=== PATIENT | male | born 1935 | race Caucasian/White ===

== ENCOUNTER 2020-03-06 10:04 | Outpatient (CLI) | payer MEDICARE, SELFPAY ==
--- NOTE | ~2020-03-06 | US_ITS ---
EXAMINATION: US aorta DATE: 03/06/2020 10:53 INDICATION: Abdominal aortic aneurysm monitoring. TECHNIQUE: Grayscale, color Doppler, and pulsed Doppler images of the aorta and common iliac arteries were obtained. COMPARISON: None. FINDINGS: The proximal aorta measures 2.4 cm. The mid aorta measures 1.9 cm. The distal aorta measures 1.7 cm. The right common iliac artery measures 1.1 cm. The left common iliac artery measures 1.1 cm. IMPRESSION: 1. Normal caliber abdominal aorta. Reviewed, dictated and finalized at location B.
--- NOTE | ~2020-03-06 | XR_ITS ---
EXAMINATION: XR elbow RT 2V DATE: 03/06/2020 10:50 INDICATION: Lateral right elbow pain post injury 3 weeks prior TECHNIQUE: Anteroposterior and lateral views of the right elbow were obtained. COMPARISON: None. FINDINGS: Alignment is normal. No fracture or joint effusion. Joint spaces are normal. Small amount of heteroto pic ossification at the lateral epicondyle likely sequela of chronic injury. Soft tissues are otherwi se unremarkable. IMPRESSION: 1. No right elbow joint effusion or acute osseous abnormality. Reviewed, dictated and finalized at location B.
--- NOTE | ~2020-03-06 | US_ITS ---
EXAMINATION: US venous doppler [facility] DATE: 03/06/2020 10:53 INDICATION: Left lower limb swelling TECHNIQUE: Grayscale ultrasound images without and with compression and Doppler ultrasound images of the left lower extremity veins were obtained. COMPARISON: None. FINDINGS: The visualized portions of left common femoral vein, profunda (deep) femoral vein, femoral vein, popl iteal vein, peroneal veins, posterior tibial veins, gastrocnemius vein and greater saphenous vein out flow are patent. IMPRESSION: 1. No deep venous thrombosis in the left lower limb. Reviewed, dictated and finalized at location B.
== END 2020-03-06 10:05 | disposition home or self-care (01) ==
LOC: ANHIMG 10:06
PROVIDERS: PCP Family Medicine; Visit Provider Internal Medicine Medical Oncology
DX: M25.521 Pain in right elbow (principal); R60.0 Localized edema
CPT/HCPCS: 73070; 76775; 93971

== ENCOUNTER 2020-07-07 10:48 | Outpatient (CLI) | payer MEDICARE, SELFPAY ==
--- NOTE | ~2020-07-07 | XR_ITS ---
XR hip RT min 2V DATE: 07/07/2020 11:25 INDICATION: Right hip pain TECHNIQUE: AP and lateral views COMPARISON: None FINDINGS: No fracture or dislocation or bone destruction. There is no evidence of avascular necrosis. Right hip joint space appears relatively preserved. The pubic symphysis and right sacral iliac joint are intact. Prominent degenerative disc disease at L4-5 and L5-S1. IMPRESSION: No significant abnormality of the right hip Prominent degenerative disc disease at L4-5 and L5-S1 Reviewed, dictated and finalized at location B. CTOR OF EDUCATION
--- NOTE | ~2020-07-07 | XR_ITS ---
XR knee RT min 4V DATE: 07/07/2020 11:25 INDICATION: Right knee pain TECHNIQUE: 4 views COMPARISON: None FINDINGS: There is mild periarticular spurring at the patellofemoral joint and medial compartment. Th ere is moderately severe loss of height of medial compartment joint space. There is chondrocalcinosis. No fracture or dislocation or joint effusion. No periosteal reaction or bone destruction. There is soft tissue swelling at the anterior aspect of the proximal tibia with multiple ununited oss ification centers at the anterior tibial tuberosity. 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 DRESSER IMPRESSION: Osteoarthritis involving primarily the medial and patellofemoral co mpartments Chondrocalcinosis Anterior soft tissue swelling and multiple ununited ossification centers at the tibial tuberosity
--- NOTE | ~2020-07-07 | XR_ITS ---
XR lumbar spine 2-3V DATE: 07/07/2020 11:25 INDICATION: Low back pain, right hip and knee pain TECHNIQUE: AP, lateral, coned lateral lumbosacral views COMPARISON: None FINDINGS: Diffuse osteopenia. Mild levoscoliosis of the thoracolumbar spine. No fracture or bone destruction or spondylolisthesis. The lumbar pedicles are intact. There is moderate degenerative disease at L1-2, L2-3, mild degenerative disc disease at L3-4 and shahana re degenerative disc disease at L4-5 and L5-S1. Abdominal aortic and iliac arterial calcifications, without evidence of aneurysm. The sacroiliac joints are intact. IMPRESSION: Multilevel degenerative disc disease Mild levoscoliosis Osteopenia Reviewed, dictated and finalized at location B. NOLOGY EDUCATION TEACHER
== END 2020-07-07 10:49 | disposition home or self-care (01) ==
PROVIDERS: PCP Family Medicine; Visit Provider Family Medicine
DX: M17.11 Unilateral primary osteoarthritis, right knee (principal); M51.36 Other intervertebral disc degeneration, lumbar region; M51.37 Other intervertebral disc degeneration, lumbosacral region; M85.88 Other specified disorders of bone density and structure, other site
CPT/HCPCS: 72100; 73502; 73564

== ENCOUNTER 2021-04-06 07:24 | Outpatient (CLI) | payer MEDICARE, SELFPAY ==
--- NOTE | ~2021-04-06 | MR_ITS ---
EXAMINATION: MR brain/brain stem wo/w con DATE: 04/06/2021 08:29 INDICATION: Other amnesia. TECHNIQUE: Magnetic resonance imaging (MRI) of the brain and brainstem was performed without and with 14 mL MultiHance intravenous contrast. Sequences included sagittal and axial T1-weighted FSE, axial diffusion-weighted FS EPI, axial T2*-weighted GRE, axial T2-weighted FLAIR Propeller, and axial T2-we ighted Propeller. Postcontrast sequences included axial and coronal T1-weighted FSE. Apparent diffusi on coefficient (ADC) maps were created. COMPARISON: Brain MRI 03/13/2010 FINDINGS: There are scattered areas of nonspecific increased T2-weighted signal intensity in the cere bral white matter. There is no intracranial hemorrhage, acute infarction, or abnormal intracranial ma ss lesion. The ventricles are normal in size. There is a small left mastoid effusion. There are likel y changes of ocular lens replacement surgeries. There is a mucous retention cyst in right maxillary s inus. IMPRESSION: 1. Mild nonspecific cerebral white matter disease, which likely represents chronic small vessel ische deana disease, worsened from 03/13/2010. Reviewed, dictated and finalized at location A. IMPRESSION: 1. 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
[2021-04-06 08:02] LABS: Estimated Glomerular Filt Rate 52
== END 2021-04-06 07:25 | disposition home or self-care (01) ==
PROVIDERS: PCP Family Medicine; Visit Provider Family Medicine
DX: R41.3 Other amnesia (principal); I48.0 Paroxysmal atrial fibrillation; R93.0 Abnormal findings on diagnostic imaging of skull and head, not elsewhere classified
CPT/HCPCS: 70553; A9577

== ENCOUNTER 2021-04-20 01:09 | Day surgery (SDC) | payer MEDICARE, SELFPAY ==
[2021-04-20 09:15] VITALS: BP 174/78; PULSE 64; RESP 15; TEMP 36.3; O2SAT 98; BMI 25.8
[2021-04-20 09:26] LABS: Basophils Absolute Auto 0.1 K/mm3 (0.0-0.1); Basophils Percent Auto 1.1 % (0.2-1.2); Eosinophils Absolute Auto 0.1 K/mm3 (0-0.3); Eosinophils Percent Auto 2.8 % (0-4.4); Hematocrit 36.6 % (42.0-52.0); Hemoglobin 11.9 g/dL (14.0-18.0); Immature Granulocyte Absolute 0.03 K/mm3 (0.00-0.031); Immature Granulocyte Percent A 0.7 % (0-0.5); Lymphocytes Absolute Auto 1.16 K/mm3 (0.9-3.2); Lymphocytes Percent Auto 25.2 % (18.3-44.2); Mean Corpuscular HGB Conc 32.5 g/dl (32-36); Mean Corpuscular Hemoglobin 32.3 pg (26-34); Mean Corpuscular Volume 99.5 fl (80-100); Mean Platelet Volume 8.9 fl (7.4-10.4); Monocytes Absolute Auto 0.8 K/mm3 (0.1-0.6); Monocytes Percent Auto 16.5 % (2.6-8.5); Neutrophils Absolute Auto 2.5 K/mm3 (1.3-6.7); Neutrophils Percent Auto 53.7 % (45.5-73.1); Platelet Count Result 277 k/mm3 (150-375); Red Blood Count 3.68 M/mm3 (4.6-6.20); White Blood Count 4.6 K/mm3 (4.5-10.0)
[2021-04-20 09:39] LABS: Anion Gap 5 mmol/L (8-16); Blood Urea Nitrogen 22 mg/dL (9-20); Calcium 9.5 mg/dL (8.4-10.2); Carbon Dioxide 28 mmol/L (22-30); Chloride 102 mmol/L (98-107); Estimated CRCL calculation 38 ml/min; Estimated Glomerular Filt Rate 57; Glucose 107 mg/dL (65-110); Potassium 4.9 mmol/L (3.4-5.0); Sodium 135 mmol/L (137-145)
[2021-04-20 10:02] LABS: Prothrombin Time 12.9 Seconds (11.1-14.7)
--- NOTE | 2021-04-20 10:59 | P.PCNCC_ITS ---
Cardiac Cath Procedure Note Date of procedure:: 04/20/21 Performing physician:: Baldemar Khan MD Indication:: History of syncope, loop recorder at end of life Brief clinical history:: this is an 85-year-old man who follows in our office with a history of syncope. He has a implantable loop recorder that was placed in 2018 for evaluation of this which has been depleted and battery power. The decision has been made to explant the device and implanted a new loop recorder in this setting. Procedure Procedure performed:: Explantation of depleted Medtronic LINQ loop recorder implantation of Biotronik Biomonitor 3 loop recorder Sedation/Medication given:: no sedation Access site:: left anterior chest wall at site of chronically implanted device Estimated blood loss:: minimal Procedure note:: patient was brought to the cardiac catheterization lab left anterior chest wall over the site of the chronically implanted loop recorder was prepped and draped in a sterile fashion. 1% lidocaine was infiltrated at the site of the implanted device. An incision was then made about 1 cm long above the implanted loop recorder. The electrocautery was used to provide cutaneous hemostasis. Sharp and blunt dissection was used to identify the chronically implanted device the fibrous capsule was incised and the device was removed using the forceps. Following this a new Biotronik loop recorder was implanted using the implantation device. The device was interrogated using the analyzer with very good amplitude and signal. Though incision was then closed with a 3-0 Vicryl incision for the subcutaneous tissue and several running 4-0 Vicryl sutures for the subcuticular closure. An Aquacel dressing was placed over the device. The procedure was uncomplicated and uneventful. Findings:: As above Conclusion:: 1. successful uncomplicated explantation of depleted Medtronic LINQ loop recorder 2. successful uncomplicated implantation of new Biotronik loop recorder in the same site as detailed above. Baldemar Khan MD [facility]
[2021-04-20 11:15] VITALS: BP 204/75; PULSE 64; RESP 18; O2SAT 99
--- NOTE | 2021-04-20 11:15 | SUR.PHASEII ---
MD Khan aware of patient's BP, states it is normal for patient. No new orders given at this time.
[2021-04-20 11:30] VITALS: BP 196/78; PULSE 58; RESP 17; O2SAT 99
--- NOTE | 2022-02-17 09:22 | PC.NURSE ---
Pre Radiology instructions Report to the Outpatient Waiting Room, entrance under the green pavilion located off [facility], at time ___30____ on date __02/24/22 . Procedure Time: ___1030 . One visitor will be allowed to accompany the patient into the hospital. The visitor will be instructed to remain with patient at all times or leave the building due to restrictions. We will allow the visitor to come back to the postoperative area when patient is ready. NO children visitors allowed at this time. You and your visitor will be asked to self-screen and do not enter if you have any COVID symptoms. A mask is required within the hospital. Patients are to have no food or drink 6 hours prior to procedure time (0430 AM) Driving will be restricted after the procedure, you must have a person to drive you home. Labs will be drawn in preop area and once reviewed, you will be taken to radiology area for procedure. When the procedure is completed, you will be taken to outpatient where you will be monitored for several hours. You may have one visitor in this area. Other than holding anti-coagulants, patient may take other medication(s) as scheduled. Prior to your appointment date patients are instructed to hold anti-coagulants after discussing with ordering provider to stop. If unable to discontinue anti-coagulants please notify radiologist. No aspirin or warfarin (Coumadin) for 7 days prior to the procedure. No clopidogrel (Plavix), ticagrelor (Brilinta), prasugrel (Effient) or dabigatran (Pradaxa) for 5 days prior to the procedure. No rivaroxaban (Xarelto), apixaban (Eliquis), dipyridamole (Aggrenox or Persantine) or cilostazol (Pletal) for 2 days prior to the procedure. Medications to discontinue per physician: __ASPIRIN__ Date to take last dose: __02/17/22 Please leave all valuables, including medications, at home the day of procedure. The hospital will not accept responsibility for valuables. Wear comfortable, loose fitting clothing. Follow any additional instructions given to you from ordering provider. Telephone instructions given to PT and asked if any additional questions and then verbalized understanding. Patient advised to call scheduling provider office or registration scheduling [phone] if any additional questions.
== END 2021-04-20 13:40 | disposition home or self-care (01) ==
PROVIDERS: PCP Family Medicine; Visit Provider Specialist
PROC: (CPT 33286; principal; 2021-04-20 10:00)
PROC: (CPT 33285; 2021-04-20 10:00)
DX: Z45.09 Encounter for adjustment and management of other cardiac device (principal); R55 Syncope and collapse; I10 Essential (primary) hypertension; I71.4 Abdominal aortic aneurysm, without rupture; I48.0 Paroxysmal atrial fibrillation; Z79.82 Long term (current) use of aspirin
CPT/HCPCS: 33285; 33286; 36415; 80048; 85025; 85610; C1764; J0690; J7040

== ENCOUNTER 2021-08-13 12:37 | Emergency (ER) | payer MEDICARE, SELFPAY ==
[2021-08-13 12:50] VITALS: BP 175/89; PULSE 85; RESP 18; TEMP 36.4; O2SAT 100
[2021-08-13 13:01] LABS: Glucose Point of Care 151 mg/dl (65-105)
--- NOTE | 2021-08-13 13:01 | ED.GENADULT ---
HPI - General Adult General Chief complaint: Weakness Stated complaint: weakness Time Seen by Provider: 08/13/21 12:50 Source: patient, RN notes reviewed and old records reviewed Mode of arrival: ambulatory Limitations: no limitations History of Present Illness HPI narrative: 86-year-old male presents to the [facility] stating something is wrong with me. Reports generalized weakness and an unsteady gait since may be this morning or last night (can not tell the last time he felt normal). Patient states I feel very off. I was going to go see Dr Dover but you can do more here then she can. Reports a headache this morning with some blurry vision but none currently. States that I didn't just feel out of it and cannot think clearly. denies chest pain or shortness of breath. Denies abdominal pain. While walking patient is drifting to the left. Reports not taking his sotalol today Related Data Home Medications Medication Instructions Recorded Confirmed amlodipine 2.5 mg-benazepril 10 mg 1 cap PO DAILY 05/21/19 08/07/21 capsule sotalol 80 mg tablet 80 mg PO DAILY 05/21/19 08/07/21 aspirin 81 mg tablet,delayed 162 mg PO DAILY tablet 05/07/20 08/07/21 release Allergies Allergy/AdvReac Type Severity Reaction Status Date / Time No Known Allergies Allergy Unknown Verified 08/07/21 12:12 Review of Systems Review of Systems: All systems reviewed & are unremarkable except as noted in HPI and below Constitutional: Constitutional: Reports as per HPI, Reports fatigue and Reports weakness Eyes: Eyes: Reports no additional eye complaints ENT: Reports system reviewed and no additional complaints, except as documented Cardiovascular: Cardiovascular: Reports no additional cardiovascular complaints, Denies chest pain, Denies rapid heart rate, Denies radiating jaw, neck or arm pain and Denies slow heart rate Respiratory: Respiratory: Reports no additional respiratory complaints, Denies cough and Denies dyspnea Gastrointestinal: Gastrointestinal: Reports no additional gastrointestinal complaints, Denies abdominal pain, Denies nausea and Denies vomiting Genitourinary: Genitourinary: Reports no additional male genitourinary complaints Musculoskeletal: Musculoskeletal: Reports as per HPI and Reports myalgias Neurologic: Reports as per HPI, Reports confusion, Denies dizziness, Denies numbness and Reports weakness Psychiatric: Psychiatric: Reports no additional psychiatric complaints Allergic/Immunologic: Allergic/Immunologic: Reports no additional allergic/immunologic complaints PMFSH Past Medical History Medical History A-fib Anemia Arthritis Encounter for immunization Erectile dysfunction 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 Hypertension Insomnia Iron deficiency anemia Macular degeneration Memory loss Obsessive compulsive disorder Rectal bleeding Surgical History Surgical History H/O hernia repair Family History Family History Mother Diabetes mellitus Family history of glaucoma Hypertension Family history of cardiovascular disease Cerebrovascular accident Father Hypertension Malignant neoplasm of prostate Sibling Family history of cardiovascular disease Social History Social History Smoking packs per day: 2 Smoking cigarettes per day: 40.0 Years smoked: 20 Smoking pack-years: 40.00 Smoking status: Former smoker Second hand tobacco smoke exposure: Yes Smoking end date: 07/04/72 Alcohol intake: current Drinks per week: 21 Alcohol use details: WINE Substance use: never Substance use type: does not use Gender identity (if verbalized by the patient): Male Comments At the time of my signature, I reviewed and agree with the nursing past medical, surgical, social, an
--- NOTE | 2021-08-13 13:05 | ECG_ITS ---
Measurements Intervals [place] Rate: 72 P: 50 AK: 185 QRS: 60 QRSD: 150 T: 46 QT: 382 QTc: 420 Interpretive Statements SINUS RHYTHM RIGHT BUNDLE BRANCH BLOCK BASELINE ARTIFACT- I, II, III, AVR, AVL, AVF, V2 ABNORMAL ECG Electronically Signed On 08-13-2021 13:17:00 VOLTMETER OPERATOR by Angel Pace D.O.
== END 2021-08-13 13:20 | disposition short-term general hospital (02) ==
PROVIDERS: Emergency Provider Nurse Practitioner; PCP Family Medicine
DX: R53.1 Weakness (principal); R26.81 Unsteadiness on feet; I45.10 Unspecified right bundle-branch block; Z87.891 Personal history of nicotine dependence; I48.91 Unspecified atrial fibrillation; M19.90 Unspecified osteoarthritis, unspecified site; R01.1 Cardiac murmur, unspecified; I10 Essential (primary) hypertension; H35.30 Unspecified macular degeneration; D50.9 Iron deficiency anemia, unspecified; Z79.82 Long term (current) use of aspirin
CPT/HCPCS: 82948; 93005; 99215; G0463

== ENCOUNTER 2021-08-13 13:49 | Inpatient (IN) | payer MEDICARE, SELFPAY ==
[2021-08-13] VITALS (12 sets, daily range): BP systolic 150–246; BP diastolic 77–106; PULSE 67–104; RESP 15–18; TEMP 36.4–37.2; O2SAT 97–100; BMI 23.3
--- NOTE | ~2021-08-13 | XR_ITS ---
XR chest 2V DATE: 08/13/2021 14:23 INDICATION: Weakness TECHNIQUE: PA and lateral views COMPARISON: 05/06/2014 2 view chest FINDINGS: There is an electronic monitoring device in the left anterior chest wall. Normal heart size . There is thoracic aortic calcification. No hilar or mediastinal enlargement is evident. No pulmonary infiltrate or consolidation, pleural effusion or pulmonary vascular congestion or pneumo thorax is detected. Degenerative spurring of the thoracic spine. Osteopenia. Bilateral chronic rotator cuff atrophy is flanagan ggested. IMPRESSION: No active cardiopulmonary disease Reviewed, dictated and finalized at location A. DENCE LEASING AGENT
--- NOTE | ~2021-08-13 | US_ITS ---
EXAMINATION: US venous doppler [facility] EXAM DATE: 08/13/2021 16:37 INDICATION: Left leg cramping. TECHNIQUE: Multiple grayscale, color flow and Doppler images of the left lower extremity deep venous system were obtained and reviewed. Comparison is made to prior examination from 03/06/2020. FINDINGS: The left common femoral, femoral and profunda veins demonstrate normal color flow, respirat ory variation, augmentation and compressibility. Compressibility, color flow confirmed within the le ft popliteal, posterior tibial, peroneal, and greater saphenous veins. IMPRESSION: 1. No left lower extremity deep venous thrombosis. Reviewed, dictated and finalized at location B. SCIENCES DIRECTOR
--- NOTE | 2021-08-13 13:48 | ECG_ITS ---
Measurements Intervals [place] Rate: 89 P: 69 AK: 211 QRS: 62 QRSD: 146 T: 20 QT: 353 QTc: 432 Interpretive Statements SINUS RHYTHM WITH FIRST DEGREE AV BLOCK POSSIBLE LEFT ATRIAL ENLARGEMENT RIGHT BUNDLE BRANCH BLOCK BASELINE ARTIFACT- I, II, III, AVR, AVF, V1-V6 ABNORMAL ECG Electronically Signed On 08-13-2021 13:52:53 NUCLEAR OPERATOR by Angel Pace D.O.
[2021-08-13 14:00] LABS: Basophils Percent Auto 0.4 % (0.2-1.2); Eosinophils Percent Auto 0.2 % (0-4.4); Hematocrit 36.8 % (42.0-52.0); Hemoglobin 12.4 g/dL (14.0-18.0); Immature Granulocyte Absolute 0.14 K/mm3 (0.00-0.031); Immature Granulocyte Percent A 1.7 % (0-0.5); Lymphocytes Absolute Auto 1.11 K/mm3 (0.9-3.2); Lymphocytes Percent Auto 13.2 % (18.3-44.2); Mean Corpuscular HGB Conc 33.7 g/dl (32-36); Mean Corpuscular Volume 94.8 fl (80-100); Mean Platelet Volume 8.9 fl (7.4-10.4); Monocytes Absolute Auto 0.8 K/mm3 (0.1-0.6); Monocytes Percent Auto 9.8 % (2.6-8.5); Neutrophils Absolute Auto 6.3 K/mm3 (1.3-6.7); Neutrophils Percent Auto 74.7 % (45.5-73.1); Platelet Count Result 347 k/mm3 (150-375); Red Blood Count 3.88 M/mm3 (4.6-6.20); Red Cell Distribution Width 13.2 % (11.5-14.5); White Blood Count 8.4 K/mm3 (4.5-10.0)
[2021-08-13 14:19] LABS: Alanine Aminotransferase 16 U/L (4-50); Albumin Level 4.9 g/dL (3.5-5.1); Alkaline Phosphatase 59 U/L (38-126); Anion Gap 10 mmol/L (8-16); Aspartate Amino Transferase 34 U/L (17-59); Bilirubin,Total 0.6 mg/dL (0.2-1.3); Blood Urea Nitrogen 26 mg/dL (9-20); Calcium 9.6 mg/dL (8.4-10.2); Carbon Dioxide 21 mmol/L (22-30); Chloride 91 mmol/L (98-107); Estimated CRCL calculation 40 ml/min; Estimated Glomerular Filt Rate 57; Glucose 121 mg/dL (65-110); Potassium 5.3 mmol/L (3.4-5.0); Sodium 122 mmol/L (137-145)
[2021-08-13 14:39] LABS: Add Urine Microscopic? YES; Appearance Urine Clear (Clear); Bilirubin Urine Negative (Negative); Blood Urine Negative (Negative); Color Urine Yellow (Yellow); Glucose Urine UA Negative (Negative); Ketones Urine Trace mg/dL (Negative); Leukocyte Esterase Ur Negative LEU/UL (Negative); Mucus Urine Rare /lpf; Nitrate Urine Negative (Negative); Protein Urine Negative (Negative); RBC Urine 0-2 /hpf (0-2); Specific Grav Ur 1.011 (1.001-1.035); Urobilinogen Urine Negative mg/dL (<2.0); WBC Urine 0-3 /hpf
[2021-08-13] MEDS: hydrALAZINE HCL 20 MG/ML VIAL 10 MG IV PUSH (15:21)
[2021-08-13] MEDS: ONDANSETRON INJ 4 MG/2 ML VIAL IV PUSH (15:40)
[2021-08-13] MEDS: SODIUM CHLORIDE 0.9% IV 1,000 ML 999 ML IV CONT (15:40)
--- NOTE | 2021-08-13 15:59 | ED.WEAKNESS ---
HPI - Weakness General Chief complaint: Weakness Stated complaint: dizzy Time Seen by Provider: 08/13/21 14:04 History of Present Illness HPI Narrative: Patient is an 86-year-old male who presents to the ER with generalized fatigue and dizziness. Began this morning upon waking up. Reports he has been taking his home medications for hypertension. Patient found to be markedly hypertensive upon arrival here 246/106 mmHg. He was seen at an urgent care with similar symptoms but his blood pressure was lower. Reports mild frontal headache that is resolved. Reports significant amounts of stress recently due to the fact that he is currently going through divorce with his of 50 years. Patient also reporting left leg muscle cramps in the calf. Related Data Home Medications Medication Instructions Recorded Confirmed amlodipine 2.5 mg-benazepril 10 mg 1 cap PO DAILY 05/21/19 08/13/21 capsule sotalol 80 mg tablet 80 mg PO DAILY 05/21/19 08/13/21 aspirin 81 mg tablet,delayed 162 mg PO DAILY tablet 05/07/20 08/13/21 release Allergies Allergy/AdvReac Type Severity Reaction Status Date / Time No Known Allergies Allergy Unknown Verified 08/07/21 12:12 Review of Systems Review of Systems: All systems reviewed & are unremarkable except as noted in HPI and below Constitutional: Constitutional: Denies chills, Denies fever(s) and Reports weakness Eyes: Eyes: Denies photophobia Comments: Transient blurred vision ENT: Denies nasal congestion and Denies sore throat Cardiovascular: Cardiovascular: Denies chest pain, Denies rapid heart rate and Denies radiating jaw, neck or arm pain Respiratory: Respiratory: Denies cough and Denies dyspnea Musculoskeletal: Musculoskeletal: Reports muscle cramps Neurologic: Reports dizziness, Denies syncope, Reports headache(s), Denies focal weakness and Denies numbness PMFSH Past Medical History Medical History A-fib Anemia Arthritis Encounter for immunization Erectile dysfunction 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 Hypertension Insomnia Iron deficiency anemia Macular degeneration Memory loss Obsessive compulsive disorder Rectal bleeding Surgical History Surgical History H/O hernia repair Family History Family History Mother Diabetes mellitus Family history of glaucoma Hypertension Family history of cardiovascular disease Cerebrovascular accident Father Hypertension Malignant neoplasm of prostate Sibling Family history of cardiovascular disease Social History Social History Smoking packs per day: 2 Smoking cigarettes per day: 40.0 Years smoked: 20 Smoking pack-years: 40.00 Smoking status: Former smoker Second hand tobacco smoke exposure: Yes Smoking end date: 07/04/72 Alcohol intake: current Drinks per week: 21 Alcohol use details: WINE Substance use: never Substance use type: does not use Gender identity (if verbalized by the patient): Male Exam Narrative: GENERAL: Well-appearing, well-nourished, and in no acute distress. HEAD: Normocephalic, atraumatic. EYES: PERRL and EOMI. ENT: Mucous membranes moist. CHEST: Clear to auscultation. No respiratory distress. HEART: Regular rate and rhythm. Normal peripheral pulses. ABDOMEN: Soft, nontender, nondistended. EXTREMITIES: Normal range of motion. No edema. No calf pain. SKIN: Warm, dry, no rash. NEURO: No focal deficits. Patient stumbled while trying to use bathroom. Alert and oriented x3. PSYCH: Normal mood and affect. Course Course Emergency Course: Admit for observation and hydration as well as blood pressure control. Vital Signs Vital signs: Vital Signs Temperature 97.6 F 08/13/21 13:49 Pulse Rate 96 08/13/21 13:49 Respiratory Rate 18 08/13/21 13:49 Bl
[2021-08-13 16:38] LABS: SARS-CoV-2 RNA PCR Negative
[2021-08-13] MEDS: ACETAMINOPHEN 325 MG TABLET 650 MG PO (18:10)
[2021-08-13] MEDS: LORazepam INJ (*CRX) 2 MG/ML VIAL 0.5 MG IV PUSH (21:37)
--- NOTE | 2021-08-13 22:00 | ADMIMU ---
This patient, Trenton Aguilar, was admitted to IMU status, and placed in IMU Room 231-01. Patient/family oriented to hospital policies and general routines including ID bracelet, bed and alarms, visiting hours, pain management, procedures, bathroom and other care routines, personal items, smoking policy, room service/diet, and visiting hours. Valuables list has been completed. Information on how to activate the Rapid Response Team has been discussed. Patient/Family are encouraged to report perceived risks to care and to ask questions if they do not understand what they are told or what they should do.
--- NOTE | 2021-08-13 22:19 | PM.IMHP ---
H&P: HPI History of Present Illness Date/Time: 08/13/211999 this is an 86-year-old male patient who came to the emergency room with some generalized fatigue and dizziness. The patient tells me that he has had multiple stressful events. the patient has not taken any of his medications today. The patient's blood pressure is highly elevated today. The patient's blood pressure was 246/106 mmHg upon arrival to the emergency room. The patient had a mild frontal headache which is now resolved. The patient is going through divorce after 50 years of marriage. He is also in the process of selling his home and buying a new 1. The patient tells me that he drinks 4-5 glasses of wine a day. He tells me that he is feeling very anxious and shaky at this time. He does have a history of atrial fibrillation but is not on any anticoagulation other than aspirin. His H&H is 12.4 and 36.8 which is higher than his baseline. However the patient does appear to be dehydrated. His sodium is 122. Potassium is 5.3. Chloride is 91. He denies any fever chills. No nausea vomiting Or diarrhea. the patient also complained of some left leg cramping and an ultrasound was performed of the left leg which was read as no left lower extremity deep vein thrombosis. Chest x-ray was read as no acute cardiopulmonary disease. The patient was given IV fluids due to the low sodium. He was given Zofran and hydralazine in the emergency room. The patient was also complaining of having left neck muscle spasms. The patient is being admitted to observation status on the date of service 08/13/2021. Chief Complaint: Weakness Review of Systems Review of Systems: All systems reviewed & are unremarkable except as noted in HPI and below Constitutional: Constitutional: Reports as per HPI and Reports no additional constitutional complaints Eyes: Eyes: Reports as per HPI and Reports no additional eye complaints ENT: Reports system reviewed and no additional complaints, except as documented and Reports Normal hearing present Cardiovascular: Cardiovascular: Reports no additional cardiovascular complaints Respiratory: Respiratory: Reports no additional respiratory complaints and Reports no additional respiratory complaints Gastrointestinal: Gastrointestinal: Reports as per HPI and Reports no additional gastrointestinal complaints Musculoskeletal: Musculoskeletal: Reports no additional musculoskeletal complaints Integumentary/Breasts: Skin/Breast: Reports system reviewed and no additional complaints, except as docu and Reports as per HPI Neurologic: Reports system reviewed and no additional complaints, except as documented, Reports as per HPI and Reports Normal hearing present Psychiatric: Psychiatric: Reports no additional psychiatric complaints and Reports as per HPI Endocrine: Endocrine: Reports no additional endocrine complaints Hematologic/Lymphatic: Hematologic/Lymphatic: Reports no additional hematologic/lymphatic complaints Allergic/Immunologic: Allergic/Immunologic: Reports no additional allergic/immunologic complaints PMFSH Past Medical History Medical History A-fib Anemia Arthritis Encounter for immunization Erectile dysfunction 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
[2021-08-13] MEDS: LIDOCAINE 5% PATCH 1 PATCH TRANSDERM (23:36)
[2021-08-13] MEDS: DOXAZOSIN MESYLATE 1 MG TABLET PO (23:40)
[2021-08-13] MEDS: PANTOPRAZOLE 40 MG TABLET PO (23:40)
[2021-08-13] MEDS: SODIUM CHLORIDE 0.9% IV 1,000 ML 125 ML IV CONT (23:41)
[2021-08-14] VITALS (10 sets, daily range): BP systolic 150–169; BP diastolic 60–78; PULSE 64–88; RESP 15–18; TEMP 36.3–36.7; O2SAT 97–99
[2021-08-14 00:01] LABS: Anion Gap 9 mmol/L (8-16); Blood Urea Nitrogen 26 mg/dL (9-20); Calcium 8.6 mg/dL (8.4-10.2); Carbon Dioxide 22 mmol/L (22-30); Chloride 90 mmol/L (98-107); Estimated CRCL calculation 36 ml/min; Estimated Glomerular Filt Rate 52; Glucose 124 mg/dL (65-110); Potassium 5.1 mmol/L (3.4-5.0); Sodium 121 mmol/L (137-145)
[2021-08-14 02:59] LABS: Sodium Urine Random 72 meq/L
[2021-08-14] MEDS: ACETAMINOPHEN 325 MG TABLET 650 MG PO (06:36)
[2021-08-14 07:43] LABS: Alanine Aminotransferase 11 U/L (4-50); Albumin Level 3.6 g/dL (3.5-5.1); Alkaline Phosphatase 39 U/L (38-126); Anion Gap 9 mmol/L (8-16); Aspartate Amino Transferase 22 U/L (17-59); Bilirubin,Total 0.9 mg/dL (0.2-1.3); Blood Urea Nitrogen 22 mg/dL (9-20); CRP < 0.5 mg/dL (<1.0); Calcium 8.5 mg/dL (8.4-10.2); Carbon Dioxide 22 mmol/L (22-30); Chloride 92 mmol/L (98-107); Estimated CRCL calculation 37 ml/min; Estimated Glomerular Filt Rate 57; Glucose 91 mg/dL (65-110); Lactate Dehydrogenase 251 U/L (313-618); Lipase 81 U/L (23-300); Magnesium 1.8 mg/dL (1.6-2.3); Potassium 4.9 mmol/L (3.4-5.0); Sodium 123 mmol/L (137-145)
[2021-08-14] MEDS: THIAMINE HCL 100 MG TABLET PO (09:14)
[2021-08-14] MEDS: PANTOPRAZOLE 40 MG TABLET PO ×2 (09:14→21:13)
[2021-08-14] MEDS: amLODIPine BESYLATE 2.5 MG TABLET PO ×2 (09:14→16:47)
[2021-08-14] MEDS: ASPIRIN 81 MG ENTERIC TABLET 162 MG PO (09:15)
[2021-08-14] MEDS: SOTALOL HCL 80 MG TABLET PO (09:15)
[2021-08-14] MEDS: FOLIC ACID 1 MG TABLET PO (09:15)
[2021-08-14] MEDS: CLOBETASOL PROPIONATE 0.05% CREAM 30 GM 1 APPLIC TOPICAL ×2 (09:16→16:48)
[2021-08-14] MEDS: TOLNAFTATE 1% POWDER 45 GM BTL 1 APPLIC TOPICAL ×2 (09:16→16:48)
[2021-08-14] MEDS: SODIUM CHLORIDE 0.9% IV 1,000 ML 125 ML IV CONT ×2 (09:19→21:12)
[2021-08-14] MEDS: chlordiazePOXIDE (*CRX) 25 MG CAPSULE PO (09:20)
[2021-08-14 11:39] LABS: Lactic Acid Reflex 0.8 mmol/L (0.7-2.1)
--- NOTE | 2021-08-14 13:15 | PM.IMPN ---
Progress Note: A&P Assessment and Plan (1) Hyponatremia: Code(s): E87.1 - Hypo-osmolality and hyponatremia Status: Acute Assessment and Plan: Sodium on admission was 121, currently it is 123 Reports poor intake IV fluids Heavy drinker Could be from lisinopril Trend labs (2) Acute hyperkalemia: Code(s): E87.5 - Hyperkalemia Status: Acute Assessment and Plan: K this am was 4.9 Stable for now Trend labs (3) Hypertension, uncontrolled: Code(s): I10 - Essential (primary) hypertension Status: Acute Assessment and Plan: Current BP 165/77 resume his sotalol and hydralazine. Amlodipine 2.5, increase to 5 and give onetime 2.5 Holding lisinopril at this time. Trend BP Adjust therapy as indicated (4) Paroxysmal atrial fibrillation: Code(s): I48.0 - Paroxysmal atrial fibrillation Status: Acute Assessment and Plan: Continue with patient's sotalol. (5) Anxiety: Code(s): F41.9 - Anxiety disorder, unspecified Status: Acute Assessment and Plan: The patient states that he drinks at least 3-4 glasses a wine a day. The patient may be going through alcohol withdrawal so will check CIWA scores. Continue with p.r.n. Librium. (6) Macular degeneration: Code(s): H35.30 - Unspecified macular degeneration Status: Acute Assessment and Plan: Continue with home medication. (7) Anemia: Qualifiers: Anemia type: unspecified type Qualified Code(s): D64.9 - Anemia, unspecified Code(s): D64.9 - Anemia, unspecified Status: Acute Assessment and Plan: Chronic continue to monitor. Time Spent With Patient Time with patient: Greater than 35 minutes Subjective Date/time seen: 08/14/21 1315 Interval history: Date/Time: 08/13/211999 This is an 86-year-old male patient who came to the emergency room with some generalized fatigue and dizziness. The patient tells me that he has had multiple stressful events. the patient has not taken any of his medications today. The patient's blood pressure is highly elevated today. The patient's blood pressure was 246/106 mmHg upon arrival to the emergency room. The patient had a mild frontal headache which is now resolved. The patient is going through divorce after 50 years of marriage. He is also in the process of selling his home and buying a new 1. The patient tells me that he drinks 4-5 glasses of wine a day. He tells me that he is feeling very anxious and shaky at this time. He does have a history of atrial fibrillation but is not on any anticoagulation other than aspirin. His H&H is 12.4 and 36.8 which is higher than his baseline. However the patient does appear to be dehydrated. His sodium is 122. Potassium is 5.3. Chloride is 91. He denies any fever chills. No nausea vomiting Or diarrhea. the patient also complained of some left leg cramping and an ultrasound was performed of the left leg which was read as no left lower extremity deep vein thrombosis. Chest x-ray was read as no acute cardiopulmonary disease. The patient was given IV fluids due to the low sodium. He was given Zofran and hydralazine in the emergency room. The patient was also complaining of having left neck muscle spasms. Date/Time 08/14/21 1315 Patient stated that he is feeling ok. He stated that he is weak still from laying in the bed. He denies any chest pain, shortness of breath, fatigue, nausea, vomiting. His sodium is still low at 123. Nursing reported that his appetite is lacking, and he is seeming to be more anxious. Review of Systems Review of Systems: All systems reviewed & are unremarkable except as noted in HPI and below Exam Const: General: cooperative, healthy appearing, comfortable, no acute distress, well developed, alert, awake and Physically active Nutritional Appearance: average body habitus and well nourished Orient[place]
[2021-08-14] MEDS: HYDROcodone/acetaminophen (*CRX) 5-325 MG TABLET 1 TAB PO (16:47)
[2021-08-14] MEDS: DOXAZOSIN MESYLATE 1 MG TABLET PO (21:13)
[2021-08-14] MEDS: LIDOCAINE 5% PATCH 1 PATCH TRANSDERM (21:16)
[2021-08-15] VITALS (17 sets, daily range): BP systolic 156–201; BP diastolic 61–87; PULSE 55–87; RESP 16–23; TEMP 36.2–37.1; O2SAT 99–100
[2021-08-15] MEDS: HYDROcodone/acetaminophen (*CRX) 5-325 MG TABLET 1 TAB PO ×2 (01:09→08:43)
[2021-08-15 04:31] LABS: Basophils Absolute Auto 0.1 K/mm3 (0.0-0.1); Eosinophils Absolute Auto 0.1 K/mm3 (0-0.3); Eosinophils Percent Auto 1.5 % (0-4.4); Hematocrit 29.8 % (42.0-52.0); Hemoglobin 10.3 g/dL (14.0-18.0); Immature Granulocyte Absolute 0.04 K/mm3 (0.00-0.031); Immature Granulocyte Percent A 0.8 % (0-0.5); Lymphocytes Absolute Auto 1.02 K/mm3 (0.9-3.2); Lymphocytes Percent Auto 19.7 % (18.3-44.2); Mean Corpuscular HGB Conc 34.6 g/dl (32-36); Mean Corpuscular Hemoglobin 32.6 pg (26-34); Mean Corpuscular Volume 94.3 fl (80-100); Mean Platelet Volume 9.4 fl (7.4-10.4); Monocytes Absolute Auto 0.9 K/mm3 (0.1-0.6); Monocytes Percent Auto 16.8 % (2.6-8.5); Neutrophils Absolute Auto 3.1 K/mm3 (1.3-6.7); Neutrophils Percent Auto 60.2 % (45.5-73.1); Platelet Count Result 278 k/mm3 (150-375); Red Blood Count 3.16 M/mm3 (4.6-6.20); Red Cell Distribution Width 13.2 % (11.5-14.5); White Blood Count 5.2 K/mm3 (4.5-10.0)
[2021-08-15 05:08] LABS: Alanine Aminotransferase 11 U/L (4-50); Albumin Level 3.4 g/dL (3.5-5.1); Alkaline Phosphatase 35 U/L (38-126); Anion Gap -1 mmol/L (8-16); Aspartate Amino Transferase 23 U/L (17-59); Bilirubin,Total 0.6 mg/dL (0.2-1.3); Blood Urea Nitrogen 21 mg/dL (9-20); Calcium 8.4 mg/dL (8.4-10.2); Carbon Dioxide 24 mmol/L (22-30); Chloride 102 mmol/L (98-107); Estimated CRCL calculation 37 ml/min; Estimated Glomerular Filt Rate 57; Glucose 108 mg/dL (65-110); Magnesium 1.7 mg/dL (1.6-2.3); Potassium 4.8 mmol/L (3.4-5.0); Sodium 125 mmol/L (137-145)
[2021-08-15] MEDS: SODIUM CHLORIDE 0.9% IV 1,000 ML 125 ML IV CONT ×3 (05:34→21:00)
[2021-08-15] MEDS: ASPIRIN 81 MG ENTERIC TABLET 162 MG PO (08:31)
[2021-08-15] MEDS: amLODIPine BESYLATE 5 MG TABLET PO ×2 (08:33→15:29)
[2021-08-15] MEDS: THIAMINE HCL 100 MG TABLET PO (08:33)
[2021-08-15] MEDS: PANTOPRAZOLE 40 MG TABLET PO ×2 (08:33→20:55)
[2021-08-15] MEDS: SOTALOL HCL 80 MG TABLET PO (08:34)
--- NOTE | 2021-08-15 09:45 | PM.IMPN ---
Progress Note: A&P Assessment and Plan (1) Hyponatremia: Code(s): E87.1 - Hypo-osmolality and hyponatremia Status: Acute Assessment and Plan: Sodium on admission was 121, currently it is 125 Reports poor intake IV fluids Heavy drinker Could be from lisinopril Trend labs (2) Acute hyperkalemia: Code(s): E87.5 - Hyperkalemia Status: Acute Assessment and Plan: K this am was 4.8 Stable for now Trend labs (3) Hypertension, uncontrolled: Code(s): I10 - Essential (primary) hypertension Status: Acute Assessment and Plan: Current BP 187/87 resume his sotalol and hydralazine. Amlodipine 5, increase to 10 Holding lisinopril at this time. Trend BP Adjust therapy as indicated (4) Paroxysmal atrial fibrillation: Code(s): I48.0 - Paroxysmal atrial fibrillation Status: Acute Assessment and Plan: Continue with patient's sotalol. (5) Anxiety: Code(s): F41.9 - Anxiety disorder, unspecified Status: Acute Assessment and Plan: The patient states that he drinks at least 3-4 glasses a wine a day. The patient may be going through alcohol withdrawal so will check CIWA scores. Continue with p.r.n. Librium. (6) Macular degeneration: Code(s): H35.30 - Unspecified macular degeneration Status: Acute Assessment and Plan: Continue with home medication. (7) Anemia: Qualifiers: Anemia type: unspecified type Qualified Code(s): D64.9 - Anemia, unspecified Code(s): D64.9 - Anemia, unspecified Status: Acute Assessment and Plan: Chronic continue to monitor. Time Spent With Patient Time with patient: Greater than 35 minutes Subjective Date/time seen: 08/15/21 0945 Interval history: Date/Time: 08/13/211999 This is an 86-year-old male patient who came to the emergency room with some generalized fatigue and dizziness. The patient tells me that he has had multiple stressful events. the patient has not taken any of his medications today. The patient's blood pressure is highly elevated today. The patient's blood pressure was 246/106 mmHg upon arrival to the emergency room. The patient had a mild frontal headache which is now resolved. The patient is going through divorce after 50 years of marriage. He is also in the process of selling his home and buying a new 1. The patient tells me that he drinks 4-5 glasses of wine a day. He tells me that he is feeling very anxious and shaky at this time. He does have a history of atrial fibrillation but is not on any anticoagulation other than aspirin. His H&H is 12.4 and 36.8 which is higher than his baseline. However the patient does appear to be dehydrated. His sodium is 122. Potassium is 5.3. Chloride is 91. He denies any fever chills. No nausea vomiting Or diarrhea. the patient also complained of some left leg cramping and an ultrasound was performed of the left leg which was read as no left lower extremity deep vein thrombosis. Chest x-ray was read as no acute cardiopulmonary disease. The patient was given IV fluids due to the low sodium. He was given Zofran and hydralazine in the emergency room. The patient was also complaining of having left neck muscle spasms. Date/Time 08/14/21 1315 Patient stated that he is feeling ok. He stated that he is weak still from laying in the bed. He denies any chest pain, shortness of breath, fatigue, nausea, vomiting. His sodium is still low at 123. Nursing reported that his appetite is lacking, and he is seeming to be more anxious. Date/Time 08/15/21 0945 Patient was lying in bed. Patient was very upset about his blood pressure. Patient stated that he feels like this is more white coat syndrome. He states every time use the doctor his blood pressure is very elevated. However, I explained that this could be from the medications that were not restarted secondary to azam
[2021-08-15] MEDS: hydrALAZINE HCL 20 MG/ML VIAL 10 MG IV PUSH ×2 (12:37→20:54)
[2021-08-15] MEDS: MAGNESIUM SULF 4 GM/WATER100ML 4 GM/100 ML BAG IVPB (15:29)
[2021-08-15] MEDS: CLOBETASOL PROPIONATE 0.05% CREAM 30 GM 1 APPLIC TOPICAL (16:51)
[2021-08-15] MEDS: SODIUM CHLORIDE 1 GM TABLET PO (16:51)
[2021-08-15] MEDS: TOLNAFTATE 1% POWDER 45 GM BTL 1 APPLIC TOPICAL (16:51)
[2021-08-15] MEDS: LIDOCAINE 5% PATCH 1 PATCH TRANSDERM (20:53)
[2021-08-15] MEDS: SOTALOL HCL 40 MG TABLET PO (20:55)
[2021-08-15] MEDS: DOXAZOSIN MESYLATE 1 MG TABLET PO (20:56)
[2021-08-16] VITALS (8 sets, daily range): BP systolic 144–197; BP diastolic 61–78; PULSE 60–99; RESP 15–20; TEMP 36.3–37; O2SAT 97–99
[2021-08-16] MEDS: SODIUM CHLORIDE 0.9% IV 1,000 ML 125 ML IV CONT ×2 (05:30→10:42)
[2021-08-16 05:43] LABS: Basophils Percent Auto 0.8 % (0.2-1.2); Eosinophils Absolute Auto 0.1 K/mm3 (0-0.3); Eosinophils Percent Auto 2.3 % (0-4.4); Hematocrit 30.8 % (42.0-52.0); Hemoglobin 10.3 g/dL (14.0-18.0); Immature Granulocyte Absolute 0.04 K/mm3 (0.00-0.031); Immature Granulocyte Percent A 0.8 % (0-0.5); Lymphocytes Absolute Auto 0.82 K/mm3 (0.9-3.2); Mean Corpuscular HGB Conc 33.4 g/dl (32-36); Mean Corpuscular Hemoglobin 32.4 pg (26-34); Mean Corpuscular Volume 96.9 fl (80-100); Mean Platelet Volume 9.2 fl (7.4-10.4); Monocytes Absolute Auto 0.9 K/mm3 (0.1-0.6); Monocytes Percent Auto 17.7 % (2.6-8.5); Neutrophils Absolute Auto 3.2 K/mm3 (1.3-6.7); Neutrophils Percent Auto 62.4 % (45.5-73.1); Platelet Count Result 263 k/mm3 (150-375); Red Blood Count 3.18 M/mm3 (4.6-6.20); Red Cell Distribution Width 13.6 % (11.5-14.5); White Blood Count 5.1 K/mm3 (4.5-10.0)
[2021-08-16 05:49] LABS: Alanine Aminotransferase 13 U/L (4-50); Albumin Level 3.5 g/dL (3.5-5.1); Alkaline Phosphatase 39 U/L (38-126); Anion Gap 4 mmol/L (8-16); Aspartate Amino Transferase 22 U/L (17-59); Bilirubin,Total 0.5 mg/dL (0.2-1.3); Blood Urea Nitrogen 16 mg/dL (9-20); Calcium 8.5 mg/dL (8.4-10.2); Carbon Dioxide 23 mmol/L (22-30); Chloride 104 mmol/L (98-107); Estimated CRCL calculation 46 ml/min; Estimated Glomerular Filt Rate > 60; Glucose 116 mg/dL (65-110); Magnesium 2.4 mg/dL (1.6-2.3); Potassium 4.2 mmol/L (3.4-5.0); Sodium 131 mmol/L (137-145)
[2021-08-16] MEDS: THIAMINE HCL 100 MG TABLET PO (08:30)
[2021-08-16] MEDS: TOLNAFTATE 1% POWDER 45 GM BTL 1 APPLIC TOPICAL (08:30)
[2021-08-16] MEDS: SODIUM CHLORIDE 1 GM TABLET PO (08:31)
[2021-08-16] MEDS: SOTALOL HCL 40 MG TABLET PO (08:31)
[2021-08-16] MEDS: FOLIC ACID 1 MG TABLET PO (08:31)
[2021-08-16] MEDS: PANTOPRAZOLE 40 MG TABLET PO (08:31)
[2021-08-16] MEDS: CLOBETASOL PROPIONATE 0.05% CREAM 30 GM 1 APPLIC TOPICAL (08:32)
[2021-08-16] MEDS: ASPIRIN 81 MG ENTERIC TABLET 162 MG PO (08:33)
[2021-08-16] MEDS: amLODIPine BESYLATE 5 MG TABLET 10 MG PO (08:34)
--- NOTE | 2021-08-16 08:45 | PM.DS ---
DS: Admitting Diagnosis Discharge Date 08/16/21 0845 Admitting Diagnosis Hyponatremia DS: Discharge Diagnosis Discharge Diagnosis (1) Hyponatremia: Code(s): E87.1 - Hypo-osmolality and hyponatremia Status: Acute Assessment and Plan: Sodium on admission was 121, currently it is 125 Reports poor intake IV fluids Heavy drinker Could be from lisinopril Trend labs (2) Acute hyperkalemia: Code(s): E87.5 - Hyperkalemia Status: Acute Assessment and Plan: K this am was 4.8 Stable for now Trend labs (3) Hypertension, uncontrolled: Code(s): I10 - Essential (primary) hypertension Status: Acute Assessment and Plan: Current BP 187/87 resume his sotalol and hydralazine. Amlodipine 5, increase to 10 Holding lisinopril at this time. Trend BP Adjust therapy as indicated (4) Paroxysmal atrial fibrillation: Code(s): I48.0 - Paroxysmal atrial fibrillation Status: Acute Assessment and Plan: Continue with patient's sotalol. (5) Anxiety: Code(s): F41.9 - Anxiety disorder, unspecified Status: Acute Assessment and Plan: The patient states that he drinks at least 3-4 glasses a wine a day. The patient may be going through alcohol withdrawal so will check CIWA scores. Continue with p.r.n. Librium. (6) Macular degeneration: Code(s): H35.30 - Unspecified macular degeneration Status: Acute Assessment and Plan: Continue with home medication. (7) Anemia: Qualifiers: Anemia type: unspecified type Qualified Code(s): D64.9 - Anemia, unspecified Code(s): D64.9 - Anemia, unspecified Status: Acute Assessment and Plan: Chronic continue to monitor. DS: Summary Hospital Course Hospital Course: Patient is an 86-year-old male with a past medical history of AFib, anemia, hypertension who presented to the ED with complaints of general fatigue and dizziness. Upon admission patient was noted to have hyponatremia with a sodium of 121. Patient has been treated with IV fluids and sodium tabs and sodium is up to 131 today. Patient does have a strong history of 4-5 glasses of wine a day. Patient is also going through a bunch of life stressors with getting a divorce, selling his home, moving to new home, learning and out and be self-sufficient which has created a lot of depression anxiety for himself. Patient really has no other complaints however he does state his next hurts. He denies any trauma or falls. Patient has been treated with pain medicine and lidocaine patches. Patient denies any urinary dysfunction along with chest pain, shortness of breath, nausea, vomiting, diarrhea, constipation. Labs and vital signs remain stable. I have talked to the patient gave him discharge instructions along with his daughter Joan. All agree at this time. Patient also denies suicidal and homicidal ideation or have any intentions or plan. Status at Discharge Functional status at discharge: independent ambulation Overall status at discharge: patient is progressing back to baseline Time Spent with Patient Time attestation: Total time spent providing and/or coordinating discharge services:48 minutes Time spent: Greater than 30 minutes Specific discharge activities: Diagnostic testing, chart review, developing a treatment plan, education, care coordination documentation, physical exam, result review Exam Const: General: cooperative, healthy appearing, comfortable, no acute distress, well developed, alert, awake and Physically active Nutritional Appearance: average body habitus and well nourished Orientation/consciousness: oriented to person, oriented to place, oriented to time and patient oriented x3 HENMT: Head: normal to inspection, No palpable skull fracture present, normocephalic and atraumatic Ears: hearing grossly normal bilaterally General nose exam: Normal external nose present Ey
[2021-08-16] MEDS: traMADol HCL (*CRX) 50 MG TABLET PO (08:46)
[2021-08-16] MEDS: DULoxetine HCL 30 MG CAPSULE.DR PO (09:33)
[2021-08-17 04:58] LABS: Osmolality, Urine 332 mOsm/kg (50-1200)
== END 2021-08-16 11:45 | disposition home or self-care (01) | DRG 641 ==
LOC: ANHED 14:22 → ANHIMU 17:26
PROVIDERS: Nurse Practitioner; Admitting Provider Family Medicine; Emergency Provider Emergency Medicine; PCP Family Medicine; Visit Provider Nurse Practitioner
DX: E87.1 Hypo-osmolality and hyponatremia (principal); E87.5 Hyperkalemia; Z20.822 Contact with and (suspected) exposure to COVID-19; I10 Essential (primary) hypertension; I48.0 Paroxysmal atrial fibrillation; F41.9 Anxiety disorder, unspecified; F32.A Depression, unspecified; H35.30 Unspecified macular degeneration; M19.90 Unspecified osteoarthritis, unspecified site; D50.9 Iron deficiency anemia, unspecified; K21.9 Gastro-esophageal reflux disease without esophagitis; F42.9 Obsessive-compulsive disorder, unspecified; Z79.82 Long term (current) use of aspirin; Z87.891 Personal history of nicotine dependence
CPT/HCPCS: 36415; 71046; 80048; 80053; 81001; 82728; 82948; 83605; 83615; 83690; 83735; 83935; 84300; 84443; 85025; 86140; 93005; 93971; 96361; 96374; 96375; 97161; 97165; 99215; 99285; A9270; C9803; G0378; G0463; J0360; J2060; J2405; J3475; J7030; U0003; U0005

== ENCOUNTER 2021-10-27 15:13 | Outpatient (CLI) | payer MEDICARE, SELFPAY ==
--- NOTE | ~2021-10-27 | US_ITS ---
EXAMINATION: US renal BI DATE: 10/27/2021 15:57 INDICATION: Stage III chronic kidney disease TECHNIQUE: Multiple ultrasound grayscale images of the kidneys were obtained. COMPARISON: CT abdomen and pelvis dated 06/03/2018 FINDINGS: The right kidney measures 11.1 x 5.4 x 5.5 cm. The left kidney measures 9.8 x 5.6 x 6.1 cm. The kidne ys demonstrate normal echogenicity. There are bilateral anechoic renal cysts measuring up to 4.5 cm o n the left and 2.1 cm on the right. There is no hydronephrosis in either kidney. No stones identifie d. There is a trabeculated mucosal surface of the bladder with a few small bladder diverticula likely related to chronic outlet obstruction from the enlarged prostate which measures at least 5.0 x 3.7 c m. IMPRESSION: 1. Bilateral renal cysts. Otherwise normal kidneys with no hydronephrosis. 2. Trabeculated bladder mucosa with a few small bladder diverticula likely related to chronic outlet obstruction from the enlarged prostate. Reviewed, dictated and finalized at location B. IMPRESSION: 1. Bilateral renal cysts. Otherwise normal kidneys with no hydronephrosis. 2. Trabeculated bladder mucosa with a few small bladder diverticula likely rela abhishek to chronic outlet obstruction from the enlarged prostate.
== END 2021-10-27 15:14 | disposition home or self-care (01) ==
LOC: ANHIMG 15:16
PROVIDERS: PCP Family Medicine; Visit Provider Family Medicine
DX: N18.30 Chronic kidney disease, stage 3 unspecified (principal); N28.1 Cyst of kidney, acquired
CPT/HCPCS: 76775

== ENCOUNTER 2021-12-17 10:23 | Outpatient (RCR) | payer MEDICARE, SELFPAY ==
[2021-12-17 11:24] LABS: Cortisol Baseline 7.45 ug/dL
== END 2022-03-17 23:59 | disposition home or self-care (01) ==
LOC: ANHVASCINF 10:23
PROVIDERS: PCP Family Medicine; Visit Provider Internal Medicine Nephrology
DX: R94.7 Abnormal results of other endocrine function studies (principal); E87.1 Hypo-osmolality and hyponatremia
CPT/HCPCS: 36415; 82533; 96372; J0834

== ENCOUNTER 2022-01-07 13:03 | Outpatient (CLI) | payer MEDICARE, SELFPAY ==
--- NOTE | ~2022-01-07 | XR_ITS ---
EXAMINATION:XR cervical spine 4-5V DATE: 01/07/2022 13:35 INDICATION: Neck pain TECHNIQUE: AP, lateral, lateral swimmers and odontoid views of the cervical spine are provided. COMPARISON: CT, 06/03/2018 FINDINGS: There are 2 mm of stable anterolisthesis of C4 on C5 and C5 on C6. The odontoid is intact. There is severe loss of intervertebral disc space height at C6-7 and moderate loss of disc space heig ht at C5-6. There is severe multilevel facet and uncovertebral joint osteoarthritis. Prevertebral sof t tissues are normal. IMPRESSION: 1. Severe cervical spondylosis without acute findings or significant interval change. Reviewed, dictated and finalized at location B. IMPRESSION: 1. Severe cervical spondylosis without acute findings or significant interval isadora graham
--- NOTE | ~2022-01-07 | XR_ITS ---
XR shoulder RT min 2V 01/07/2022 13:35 Indication: Status post fall. Right shoulder pain. Procedure: 5 views right shoulder Comparison: No prior studies for comparison. Findings: There is severe glenohumeral joint osteoarthritis. There is osteoarthritis of the acromiocl avicular joint. There are areas of ossification adjacent to the humeral head, consistent with calcifi c tendinopathy. No acute fracture is identified. Osteopenia. There are calcified granuloma in the rig ht lung. 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 Reviewed, dictated and finalized at location A. 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
== END 2022-01-07 13:04 | disposition home or self-care (01) ==
PROVIDERS: PCP Family Medicine; Visit Provider Physician Assistant
DX: M47.892 Other spondylosis, cervical region (principal); M19.011 Primary osteoarthritis, right shoulder
CPT/HCPCS: 72050; 73030

== ENCOUNTER 2022-01-20 11:01 | Outpatient (CLI) | payer MEDICARE, SELFPAY ==
[2022-01-20 11:21] LABS: Basophils Percent Auto 0.6 % (0.2-1.2); Eosinophils Absolute Auto 0.1 K/mm3 (0-0.3); Eosinophils Percent Auto 2.8 % (0-4.4); Hematocrit 37.6 % (42.0-52.0); Hemoglobin 12.2 g/dL (14.0-18.0); Immature Granulocyte Absolute 0.03 K/mm3 (0.00-0.031); Immature Granulocyte Percent A 0.6 % (0-0.5); Lymphocytes Percent Auto 24.2 % (18.3-44.2); Mean Corpuscular HGB Conc 32.4 g/dl (32-36); Mean Corpuscular Hemoglobin 30.5 pg (26-34); Mean Platelet Volume 8.7 fl (7.4-10.4); Monocytes Absolute Auto 0.7 K/mm3 (0.1-0.6); Monocytes Percent Auto 14.5 % (2.6-8.5); Neutrophils Absolute Auto 2.8 K/mm3 (1.3-6.7); Neutrophils Percent Auto 57.3 % (45.5-73.1); Platelet Count Result 285 k/mm3 (150-375); Red Cell Distribution Width 12.6 % (11.5-14.5)
[2022-01-20 13:25] LABS: Alanine Aminotransferase 16 U/L (6-50); Albumin Level 4.5 g/dL (3.5-5.1); Alkaline Phosphatase 62 U/L (38-126); Anion Gap 6 mmol/L (8-16); Aspartate Amino Transferase 23 U/L (17-59); Bilirubin,Total 0.5 mg/dL (0.2-1.3); Blood Urea Nitrogen 26 mg/dL (9-20); Calcium 9.4 mg/dL (8.4-10.2); Carbon Dioxide 31 mmol/L (22-30); Chloride 95 mmol/L (98-107); Estimated Glomerular Filt Rate 52; Glucose 90 mg/dL (65-110); Potassium 4.6 mmol/L (3.4-5.0); Sodium 132 mmol/L (137-145)
[2022-01-20 13:32] LABS: Immunoglobulin A 218 mg/dL (70-400); Immunoglobulin G 1308 mg/dL (700-1600); Immunoglobulin M 101 mg/dL (40-230)
[2022-01-24 08:01] LABS: Kappa\\Lambda Light Chains 1.59 (0.26-1.65); Lambda Light Chain 21.4 mg/L (5.7-26.3)
[2022-01-25 20:03] LABS: Abnormal Protein Band 1 0.7 g/dL; Albumin 4.2 g/dL (3.8-4.8); Alpha 1 Globulin 0.3 g/dL (0.2-0.3); Alpha 2 Globulin 0.9 g/dL (0.5-0.9); Beta 1 Globulin 0.4 g/dL (0.4-0.6); Gamma Globulin 1.1 g/dL (0.8-1.7); Protein, Total 7.2 g/dL (6.1-8.1)
== END 2022-01-20 11:02 | disposition home or self-care (01) ==
LOC: ANHLAB 11:03
PROVIDERS: PCP Family Medicine; Visit Provider Internal Medicine Hematology & Oncology
DX: C90.00 Multiple myeloma not having achieved remission (principal)
CPT/HCPCS: 36415; 80053; 82784; 83883; 84155; 84165; 85025

== ENCOUNTER 2022-01-22 12:43 | Outpatient (CLI) | payer MEDICARE, SELFPAY ==
--- NOTE | ~2022-01-22 | XR_ITS ---
EXAMINATION: XR bone survey comp/metastic DATE: 01/22/2022 13:25 INDICATION: Multiple myeloma. TECHNIQUE: 29 views from a skeletal survey were obtained. COMPARISON: CT abdomen and pelvis 06/03/2018, head CT 06/03/18 FINDINGS: There is mild scarring at the lung apices. There is mild atelectasis versus scarring at lef t lung base. There is an implant overlying the heart. Osteopenia is noted. There is a 5 mm lytic lesi on in right posterior skull, stable from 06/03/2018, likely benign. IMPRESSION: 1. No specific evidence of multiple myeloma. Reviewed, dictated and finalized at location A.
== END 2022-01-22 12:44 | disposition home or self-care (01) ==
PROVIDERS: PCP Family Medicine; Visit Provider Internal Medicine Hematology & Oncology
DX: C90.00 Multiple myeloma not having achieved remission (principal)
CPT/HCPCS: 77075

== ENCOUNTER 2022-02-03 09:17 | Outpatient (CLI) | payer MEDICARE, SELFPAY ==
[2022-02-03 09:34] LABS: Eosinophils Absolute Auto 0.2 K/mm3 (0-0.3); Hematocrit 36.4 % (42.0-52.0); Hemoglobin 11.8 g/dL (14.0-18.0); Immature Granulocyte Absolute 0.02 K/mm3 (0.00-0.031); Immature Granulocyte Percent A 0.5 % (0-0.5); Lymphocytes Absolute Auto 1.12 K/mm3 (0.9-3.2); Lymphocytes Percent Auto 27.8 % (18.3-44.2); Mean Corpuscular HGB Conc 32.4 g/dl (32-36); Mean Corpuscular Hemoglobin 30.1 pg (26-34); Mean Corpuscular Volume 92.9 fl (80-100); Mean Platelet Volume 8.4 fl (7.4-10.4); Monocytes Absolute Auto 0.6 K/mm3 (0.1-0.6); Monocytes Percent Auto 14.4 % (2.6-8.5); Neutrophils Absolute Auto 2.1 K/mm3 (1.3-6.7); Neutrophils Percent Auto 52.3 % (45.5-73.1); Platelet Count Result 289 k/mm3 (150-375); Red Blood Count 3.92 M/mm3 (4.6-6.20); Red Cell Distribution Width 12.8 % (11.5-14.5)
[2022-02-03 09:38] LABS: Blood Urea Nitrogen 25 mg/dL (8-26); Carbon Dioxide 27 mmol/L (22-30); Chloride 95 mmol/L (98-109); Estimated Glomerular Filt Rate 48; Glucose 111 mg/dL (70-105); Ionized Calcium (POC) 1.21 mmol/L (1.11-1.31); Potassium 4.4 mmol/L (3.5-4.9); Sodium 133 mmol/L (138-146)
[2022-02-03 10:48] LABS: Alanine Aminotransferase 18 U/L (6-50); Albumin Level 4.3 g/dL (3.5-5.1); Alkaline Phosphatase 50 U/L (38-126); Anion Gap 10 mmol/L (8-16); Aspartate Amino Transferase 24 U/L (17-59); Bilirubin,Total 0.5 mg/dL (0.2-1.3); Blood Urea Nitrogen 26 mg/dL (9-20); Calcium 9.4 mg/dL (8.4-10.2); Carbon Dioxide 27 mmol/L (22-30); Chloride 93 mmol/L (98-107); Estimated Glomerular Filt Rate 57; Glucose 113 mg/dL (65-110); Potassium 4.4 mmol/L (3.4-5.0); Sodium 130 mmol/L (137-145)
== END 2022-02-03 09:18 | disposition home or self-care (01) ==
LOC: ANHLAB 09:18
PROVIDERS: PCP Family Medicine; Visit Provider Internal Medicine Hematology & Oncology
DX: C90.00 Multiple myeloma not having achieved remission (principal)
CPT/HCPCS: 36415; 80047; 80053; 85025

== ENCOUNTER 2022-02-24 00:05 | Outpatient (CLI) | payer MEDICARE, SELFPAY ==
[2022-02-17 09:22] VITALS: BMI 24.4
--- NOTE | 2022-02-19 08:02 | PC.NURSE ---
Pre Radiology instructions Report to the Outpatient Waiting Room, entrance under the green pavilion located off [facility], at time __0830 on date _02/24/22 . Procedure Time: _1030 . One visitor will be allowed to accompany the patient into the hospital. The visitor will be instructed to remain with patient at all times or leave the building due to restrictions. We will allow the visitor to come back to the postoperative area when patient is ready. NO children visitors allowed at this time. You and your visitor will be asked to self-screen and do not enter if you have any COVID symptoms. A mask is required within the hospital. Patients are to have no food or drink 6 hours prior to procedure time Driving will be restricted after the procedure, you must have a person to drive you home. Labs will be drawn in preop area and once reviewed, you will be taken to radiology area for procedure. When the procedure is completed, you will be taken to outpatient where you will be monitored for several hours. You may have one visitor in this area. Other than holding anti-coagulants, patient may take other medication(s) as scheduled. Prior to your appointment date patients are instructed to hold anti-coagulants after discussing with ordering provider to stop. If unable to discontinue anti-coagulants please notify radiologist. No aspirin or warfarin (Coumadin) for 7 days prior to the procedure. No clopidogrel (Plavix), ticagrelor (Brilinta), prasugrel (Effient) or dabigatran (Pradaxa) for 5 days prior to the procedure. No rivaroxaban (Xarelto), apixaban (Eliquis), dipyridamole (Aggrenox or Persantine) or cilostazol (Pletal) for 2 days prior to the procedure. Medications to discontinue per physician: ____ASPIRIN INSTRUCTED Date to take last dose: 02/17/22 Please leave all valuables, including medications, at home the day of procedure. The hospital will not accept responsibility for valuables. Wear comfortable, loose fitting clothing. Follow any additional instructions given to you from ordering provider. Telephone instructions given to and asked if any additional questions and then verbalized understanding. Patient advised to call scheduling provider office or registration scheduling [phone] if any additional questions.
[2022-02-23 11:23] VITALS: BP 169/80; PULSE 59; RESP 16; O2SAT 100
[2022-02-23 11:38] VITALS: BP 163/78; PULSE 59; RESP 16; O2SAT 100
[2022-02-23 11:50] VITALS: BP 147/77; PULSE 61; RESP 16; O2SAT 96
[2022-02-23 12:05] VITALS: BP 142/82; PULSE 77; RESP 16; O2SAT 98
[2022-02-24] VITALS (13 sets, daily range): BP systolic 129–180; BP diastolic 71–84; PULSE 57–71; RESP 16–18; TEMP 36.2; O2SAT 96–100; BMI 23.6
--- NOTE | ~2022-02-24 | US_ITS ---
. EXAMINATION: US biopsy renal DATE: 02/24/2022 11:39 INDICATION: Chronic kidney disease stage III. Paraproteinemia. TECHNIQUE: The procedure including the risks, benefits, and alternatives was discussed with the patie nt. Risks discussed included bleeding and infection. The patient understood the risks and agreed to p roceed. A timeout was performed to verify the patient's name, date of , and procedure to be p erformed. The skin overlying the left kidney was prepped and draped in usual sterile fashion. Anest hetic was administered with 1% lidocaine subcutaneously. An 18 gauge core biopsy needle was then use d to obtain 4 core biopsy specimens under continuous sonographic guidance. The entry site was cleaned and dressed. There were no immediate complications. FINDINGS: Ultrasound images demonstrate the needle in the kidney. IMPRESSION: 1. Ultrasound-guided random left kidney core needle biopsy. Reviewed, dictated and finalized at location A.
[2022-02-24 10:31] LABS: INR 1.1; Prothrombin Time 13.5 Seconds (11.1-14.7)
== END 2022-02-24 15:40 | disposition home or self-care (01) ==
PROVIDERS: PCP Family Medicine; Referring Provider Internal Medicine Nephrology; Visit Provider Radiology Diagnostic Radiology
PROC: (CPT 76942; principal; 2022-02-24 10:30)
DX: I12.9 Hypertensive chronic kidney disease with stage 1 through stage 4 chronic kidney disease, or unspecified chronic kidney disease (principal); N18.30 Chronic kidney disease, stage 3 unspecified; D89.2 Hypergammaglobulinemia, unspecified
CPT/HCPCS: 36415; 50200; 76942; 85610; 88300; 88305; 88313; 88329; 88346; 88348; 88350

== ENCOUNTER 2022-03-14 11:30 | Emergency (ER) | payer MEDICARE, SELFPAY ==
[2022-03-14 11:34] VITALS: BP 209/96; PULSE 79; RESP 14; TEMP 36.1; O2SAT 100
[2022-03-14 12:19] LABS: Basophils Percent Auto 0.5 % (0.2-1.2); Eosinophils Percent Auto 0.5 % (0-4.4); Hematocrit 38.7 % (42.0-52.0); Hemoglobin 12.4 g/dL (14.0-18.0); Immature Granulocyte Absolute 0.07 K/mm3 (0.00-0.031); Immature Granulocyte Percent A 1.1 % (0-0.5); Lymphocytes Absolute Auto 1.14 K/mm3 (0.9-3.2); Mean Corpuscular Volume 93.7 fl (80-100); Mean Platelet Volume 8.8 fl (7.4-10.4); Monocytes Absolute Auto 0.9 K/mm3 (0.1-0.6); Monocytes Percent Auto 13.7 % (2.6-8.5); Neutrophils Absolute Auto 4.2 K/mm3 (1.3-6.7); Neutrophils Percent Auto 66.2 % (45.5-73.1); Platelet Count Result 318 k/mm3 (150-375); Red Blood Count 4.13 M/mm3 (4.6-6.20); Red Cell Distribution Width 13.3 % (11.5-14.5); White Blood Count 6.4 K/mm3 (4.5-10.0)
--- NOTE | 2022-03-14 12:25 | ECG_ITS ---
Measurements Intervals [place] Rate: 60 P: 23 SC: 194 QRS: 44 QRSD: 160 T: 10 QT: 433 QTc: 435 Interpretive Statements SINUS RHYTHM BORDERLINE AV CONDUCTION DELAY RIGHT BUNDLE BRANCH BLOCK ABNORMAL ECG COMPARED TO ECG 08/13/2021 13:50:05 NO SIGNIFICANT CHANGES Electronically Signed On 03-15-2022 6:44:37 CDT by Angel Pace D.O.
[2022-03-14 12:32] LABS: Alanine Aminotransferase 20 U/L (6-50); Albumin Level 4.5 g/dL (3.5-5.1); Alkaline Phosphatase 56 U/L (38-126); Anion Gap 13 mmol/L (8-16); Aspartate Amino Transferase 24 U/L (17-59); Bilirubin,Total 0.4 mg/dL (0.2-1.3); Blood Urea Nitrogen 23 mg/dL (9-20); Calcium 8.8 mg/dL (8.4-10.2); Carbon Dioxide 27 mmol/L (22-30); Chloride 95 mmol/L (98-107); Estimated CRCL calculation 42 ml/min; Estimated Glomerular Filt Rate > 60; Glucose 143 mg/dL (65-110); Potassium 4.2 mmol/L (3.4-5.0); Sodium 135 mmol/L (137-145)
--- NOTE | 2022-03-14 13:00 | ED.GENADULT ---
HPI - General Adult General Chief complaint: Unspecified Stated complaint: can't get my blood pressure below 200 Time Seen by Provider: 03/14/22 12:25 Source: patient Mode of arrival: ambulatory Limitations: no limitations History of Present Illness HPI narrative: This is an 86-year-old male that presents to the emergency department for hypertension. Reports he had his blood pressure medication changed from amlodipine to lisinopril 3 days ago. He has been taking this daily. He took his blood pressure at home and noted it has been elevated to the 160s to 200s systolic. He is asymptomatic with this. Denies chest pain, shortness of breath, headache, weakness, or numbness. Related Data Home Medications Medication Instructions Recorded Confirmed aspirin 81 mg tablet,delayed 162 mg PO DAILY 05/07/20 02/25/22 release (Aspir-Low) acetaminophen 325 mg capsule 325 mg PO Q6H PRN Pain 08/18/21 02/25/22 (Tylenol) cetirizine 10 mg capsule (Zyrtec) 10 mg PO DAILY PRN Congestion 08/18/21 02/25/22 cleiddkbxriv-rpn-farpg acid-vit 1 tablet PO DAILY 08/18/21 02/25/22 K-lycop 400 mcg-20 mcg-370 mcg tablet (One-A-Day Men's 50 Plus) Allergies Allergy/AdvReac Type Severity Reaction Status Date / Time No Known Allergies Allergy Unknown Verified 03/11/22 10:38 Review of Systems Review of Systems: CONSTITUTIONAL: Denies fever CARDIOVASCULAR: Denies chest pain, or edema. RESPIRATORY: Denies dyspnea. NEUROLOGIC: Denies headache, numbness, or weakness. 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 Hypertension Insomnia Iron deficiency anemia Macular degeneration Memory loss Obsessive compulsive disorder Plasma cell disorder Rectal bleeding Wears glasses Surgical History Surgical History H/O hernia repair History of shoulder surgery Hx of cataract extraction Family History Family History Mother Diabetes mellitus Family history of glaucoma Hypertension Family history of cardiovascular disease Cerebrovascular accident Father Hypertension Malignant neoplasm of prostate Sibling Family history of cardiovascular disease Other Arthritis Social History Social History Social History: the patient is going through a divorce. He stated that he had 4 children. He does not have a durable power united states attorney for healthcare. 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 The patient stated that he drinks about 4 glasses a wine a day. He stated that he has not gone through any withdrawals. The patient is an ex-smoker. code status full code Smoking packs per day: 2 Smoking cigarettes per day: 40.0 Years smoked: 20 Smoking pack-years: 40.00 Smoking status: Former smoker Second hand tobacco smoke exposure: Yes Smoking end date: 07/04/72 Alcohol intake: current Drinks per week: 28 Alcohol use details: WINE Substance use: never Substance use type: does not use Gender identity (if verbalized by the patient): Male Spiritual care concerns: No Exam Narrative: GENERAL: Well-appearing, well-nourished, and in no acute distress. HEAD: Normocephalic, atraumatic. EYES: EOMI. CHEST: Clear to auscultation. No respiratory distress. No wheezes rales or rhonchi HEART: Regular rate and rhythm. No murmur heard. Normal peripheral pulses. EXTREMITIES: Normal range of motion. No edema. SKIN: Warm, dry, no rash. NEURO: No focal deficits.
[2022-03-14 13:06] VITALS: BP 173/78; PULSE 64; RESP 16; O2SAT 98
[2022-03-14 13:51] VITALS: BP 174/82; PULSE 68; RESP 18; O2SAT 98
== END 2022-03-14 13:59 | disposition home or self-care (01) ==
PROVIDERS: Emergency Provider Emergency Medicine; PCP Family Medicine
DX: I12.9 Hypertensive chronic kidney disease with stage 1 through stage 4 chronic kidney disease, or unspecified chronic kidney disease (principal); N18.30 Chronic kidney disease, stage 3 unspecified; I48.91 Unspecified atrial fibrillation; D50.9 Iron deficiency anemia, unspecified; R46.81 Obsessive-compulsive behavior; Z79.82 Long term (current) use of aspirin; Z87.891 Personal history of nicotine dependence
CPT/HCPCS: 36415; 80053; 85025; 93005; 99283

== ENCOUNTER 2022-08-04 12:28 | Outpatient (CLI) | payer MEDICARE, SELFPAY ==
[2022-08-04 12:57] LABS: Basophils Percent Auto 0.7 % (0.2-1.2); Eosinophils Absolute Auto 0.2 K/mm3 (0-0.3); Eosinophils Percent Auto 2.9 % (0-4.4); Hematocrit 35.9 % (42.0-52.0); Hemoglobin 11.9 g/dL (14.0-18.0); Immature Granulocyte Absolute 0.04 K/mm3 (0.00-0.031); Immature Granulocyte Percent A 0.7 % (0-0.5); Lymphocytes Absolute Auto 1.21 K/mm3 (0.9-3.2); Lymphocytes Percent Auto 19.8 % (18.3-44.2); Mean Corpuscular HGB Conc 33.1 g/dl (32-36); Mean Corpuscular Hemoglobin 30.7 pg (26-34); Mean Corpuscular Volume 92.5 fl (80-100); Mean Platelet Volume 8.5 fl (7.4-10.4); Monocytes Absolute Auto 0.8 K/mm3 (0.1-0.6); Monocytes Percent Auto 13.1 % (2.6-8.5); Neutrophils Absolute Auto 3.9 K/mm3 (1.3-6.7); Neutrophils Percent Auto 62.8 % (45.5-73.1); Platelet Count Result 313 k/mm3 (150-375); Red Blood Count 3.88 M/mm3 (4.6-6.20); Red Cell Distribution Width 12.9 % (11.5-14.5); White Blood Count 6.1 K/mm3 (4.5-10.0)
[2022-08-04 16:49] LABS: Alanine Aminotransferase 18 U/L (6-50); Albumin Level 4.1 g/dL (3.5-5.1); Alkaline Phosphatase 52 U/L (38-126); Anion Gap 7 mmol/L (8-16); Aspartate Amino Transferase 23 U/L (17-59); Bilirubin,Total 0.5 mg/dL (0.2-1.3); Blood Urea Nitrogen 31 mg/dL (9-20); Calcium 9.1 mg/dL (8.4-10.2); Carbon Dioxide 29 mmol/L (22-30); Chloride 96 mmol/L (98-107); Estimated Glomerular Filt Rate 57; Glucose 89 mg/dL (65-110); Potassium 4.7 mmol/L (3.4-5.0); Sodium 132 mmol/L (137-145)
[2022-08-04 17:02] LABS: Immunoglobulin A 205 mg/dL (70-400); Immunoglobulin G 1160 mg/dL (700-1600); Immunoglobulin M 101 mg/dL (40-230)
[2022-08-06 11:45] LABS: Kappa\\Lambda Light Chains 1.53 (0.26-1.65); Lambda Light Chain 21.2 mg/L (5.7-26.3)
[2022-08-06 16:56] LABS: Abnormal Protein Band 1 0.6 g/dL; Alpha 1 Globulin 0.3 g/dL (0.2-0.3); Alpha 2 Globulin 0.8 g/dL (0.5-0.9); Beta 1 Globulin 0.4 g/dL (0.4-0.6); Protein, Total 6.8 g/dL (6.1-8.1)
== END 2022-08-04 12:29 | disposition home or self-care (01) ==
LOC: ANHLAB 12:28
PROVIDERS: PCP Family Medicine; Visit Provider Internal Medicine Hematology & Oncology
DX: C90.00 Multiple myeloma not having achieved remission (principal)
CPT/HCPCS: 36415; 80053; 82784; 83883; 84155; 84165; 85025

== ENCOUNTER 2022-09-09 20:04 | Emergency (ER) | payer MEDICARE, SELFPAY ==
--- NOTE | ~2022-09-09 | XR_ITS ---
EXAMINATION: XR ribs RT 2V w CXR 2V DATE: 09/09/2022 20:27 INDICATION: Right upper rib pain post fall TECHNIQUE: PA and lateral views of the chest and 3 views of the right ribs were obtained. COMPARISON: Chest radiograph dated 08/13/21 rib radiographs dated 04/30/2014 FINDINGS: No acute rib fractures identified. Chronic mild eventration of the anterior right hemidiaphragm. Mild streaky left basilar atelectasis/scarring. No focal airspace opacities, some edema, pleural effusion or pneumothorax. Heart size is normal. Left pectoral implantable monitoring engineer. Right rotator cuff arthropathy with severe glenohumeral osteoarthritis. IMPRESSION: 1. No rib fracture or acute cardiopulmonary disease. Reviewed, dictated and finalized at location A. UM CLEANER REPAIR PERSON
[2022-09-09 20:07] VITALS: BP 157/70; PULSE 73; RESP 20; TEMP 36.8; O2SAT 96
--- NOTE | 2022-09-09 20:29 | PC.NURSE ---
Pt c/o mid back pain on the right side after he fell approx 40 minutes ago. States he missed a step and landed on his right side. Pain is worse with palpation, movement, and especially when he tries to lift up his right arm. He did not take anything for pain [employer]. He does not take blood thinners.
--- NOTE | 2022-09-09 20:42 | ED.FALL ---
HPI - Fall General Chief Complaint: Fall <TRNIY Timmons Last Filed: 09/10/22 00:39> Stated Complaint: rib pain, fall <Brianna Montesinos PA-C - Last Filed: 09/10/22 00:39> Time Seen by Provider: 09/09/22 20:26 <TRINY Timmons Last Filed: 09/10/22 00:39> History of Present Illness HPI Narrative: 87-year-old male here for evaluation of right-sided rib pain after falling today. Patient states that he was going down the steps in his usual state of health when he accidentally missed a step, causing him to fall to the side and strike the right side of his chest against the ground. He denies head injury or loss of consciousness. Currently complaining of pain in his right lateral ribs. No shortness of breath but just notes pain in that area with deep breaths. No further injuries sustained. He does not take blood thinner medicines. <TRINY Timmons Last Filed: 09/10/22 00:39> Related Data Home Medications: Home Medications Medication Instructions Recorded Confirmed aspirin 81 mg tablet,delayed 162 mg PO DAILY 05/07/20 08/27/22 release (Aspir-Low) acetaminophen 325 mg capsule 325 mg PO Q6H PRN Pain 08/18/21 08/27/22 (Tylenol) cetirizine 10 mg capsule (Zyrtec) 10 mg PO DAILY PRN Congestion 08/18/21 08/27/22 akovpayyxosi-oya-owegy acid-vit 1 tablet PO DAILY 08/18/21 08/27/22 K-lycop 400 mcg-20 mcg-370 mcg tablet (One-A-Day Men's 50 Plus) ascorbic acid (vitamin C) 1,000 mg 1 g PO DAILY 08/27/22 08/27/22 capsule magnesium oxide 500 mg capsule 500 mg PO DAILY 08/27/22 08/27/22 <TRINY Timmons Last Filed: 09/10/22 00:39> Allergies/Adverse Reactions: Allergies Allergy/AdvReac Type Severity Reaction Status Date / Time No Known Allergies Allergy Unknown Verified 08/27/22 09:51 <Brianna Montesinos PA-C - Last Filed: 09/10/22 00:39> [facility] Past Medical History Medical History: Medical History A-fib Alcohol use Anemia Arthritis Chronic renal insufficiency, stage III (moderate) Claustrophobia Dizziness DJD of right shoulder Effusion of knee joint right Encounter for immunization Erectile dysfunction 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 Hypertension Insomnia Iron deficiency anemia Macular degeneration Memory loss Obsessive compulsive disorder Plasma cell disorder Rectal bleeding Wears glasses <Brianna Montesinos PA-C - Last Filed: 09/10/22 00:39> Surgical History Surgical History: Surgical History H/O hernia repair History of shoulder surgery Hx of cataract extraction <Brianna Montesinos PA-C - Last Filed: 09/10/22 00:39> Family History Family History: Family History Mother Diabetes mellitus Family history of glaucoma Hypertension Family history of cardiovascular disease Cerebrovascular accident Father Hypertension Malignant neoplasm of prostate Sibling Family history of cardiovascular disease Other Arthritis <TRINY Timmons Last Filed: 09/10/22 00:39> Social History Social History: Social History Social History: the patient is going through a divorce. He stated that he had 4 children. He does not have a durable power deputy commonwealth's attorney for healthcare. 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 The patient stated that he drinks about 4 glasses a wine a day. He stated that he has not gone through any withdrawals. The patient is an ex-smoker. code status full code Smoking packs per day: 2 Smoking cigarettes per day: 40.0 Years smoked: 20 Smoking pack-years: 40.00 Smoking status: Former smoker Second hand tobacco smoke exposure: Yes Smoking end date: 07/04/72 Al
[2022-09-09] MEDS: HYDROcodone/acetaminophen (*CRX) 5-325 MG TABLET 1 TAB PO (20:55)
[2022-09-09] MEDS: LIDOCAINE 5% PATCH 1 PATCH TRANSDERM ×2 (20:55→21:32)
[2022-09-09 21:38] VITALS: BP 132/80; PULSE 82; RESP 18; TEMP 36.8; O2SAT 99
== END 2022-09-09 21:38 | disposition home or self-care (01) ==
LOC: ANHED 21:26
PROVIDERS: Emergency Provider Physician Assistant; PCP Family Medicine
DX: R07.81 Pleurodynia (principal); I48.91 Unspecified atrial fibrillation; I12.9 Hypertensive chronic kidney disease with stage 1 through stage 4 chronic kidney disease, or unspecified chronic kidney disease; N18.30 Chronic kidney disease, stage 3 unspecified; D50.9 Iron deficiency anemia, unspecified; H35.30 Unspecified macular degeneration; M19.011 Primary osteoarthritis, right shoulder; F42.9 Obsessive-compulsive disorder, unspecified; Z98.49 Cataract extraction status, unspecified eye; Z87.891 Personal history of nicotine dependence; W10.9XXA Fall (on) (from) unspecified stairs and steps, initial encounter
CPT/HCPCS: 71046; 71100; 99283; A9270

== ENCOUNTER 2022-09-14 14:53 | Outpatient (CLI) | payer MEDICARE, SELFPAY ==
--- NOTE | ~2022-09-14 | XR_ITS ---
AP and oblique views of the right ribs, and PA and lateral chest radiographs Clinical History: Pain Findings: No rib fracture is seen. Osseous alignment is anatomic. Lungs are clear, without focal cons olidation or pleural effusion. Cardiomediastinal contour is within normal limits. Wireless cardiac mo nitoring device present. Soft tissues are unremarkable. Impression: No rib fracture is seen. Clear lungs. Reviewed, dictated and finalized at location . Impression: No rib fracture is seen. Clear lungs.
== END 2022-09-14 14:54 | disposition home or self-care (01) ==
LOC: ANHIMG 14:57
PROVIDERS: PCP Family Medicine; Visit Provider Physician Assistant Medical
DX: R07.81 Pleurodynia (principal)
CPT/HCPCS: 71046; 71100

== ENCOUNTER 2022-10-15 09:22 | Outpatient (CLI) | payer MEDICARE, SELFPAY ==
[2022-10-15 09:39] LABS: Basophils Absolute Auto 0.1 K/mm3 (0.0-0.1); Basophils Percent Auto 0.7 % (0.2-1.2); Eosinophils Absolute Auto 0.2 K/mm3 (0-0.3); Eosinophils Percent Auto 2.4 % (0-4.4); Hematocrit 38.2 % (42.0-52.0); Hemoglobin 12.5 g/dL (14.0-18.0); Immature Granulocyte Absolute 0.12 K/mm3 (0.00-0.031); Immature Granulocyte Percent A 1.7 % (0-0.5); Lymphocytes Absolute Auto 1.42 K/mm3 (0.9-3.2); Lymphocytes Percent Auto 20.4 % (18.3-44.2); Mean Corpuscular HGB Conc 32.7 g/dl (32-36); Mean Corpuscular Hemoglobin 30.6 pg (26-34); Mean Corpuscular Volume 93.4 fl (80-100); Mean Platelet Volume 8.2 fl (7.4-10.4); Monocytes Absolute Auto 0.9 K/mm3 (0.1-0.6); Monocytes Percent Auto 12.9 % (2.6-8.5); Neutrophils Absolute Auto 4.3 K/mm3 (1.3-6.7); Neutrophils Percent Auto 61.9 % (45.5-73.1); Platelet Count Result 341 k/mm3 (150-375); Red Blood Count 4.09 M/mm3 (4.6-6.20)
[2022-10-15 11:09] LABS: Anion Gap 7 mmol/L (8-16); Blood Urea Nitrogen 27 mg/dL (9-20); Calcium 8.7 mg/dL (8.4-10.2); Carbon Dioxide 30 mmol/L (22-30); Chloride 93 mmol/L (98-107); Estimated Glomerular Filt Rate 48; Glucose 113 mg/dL (65-110); Potassium 4.5 mmol/L (3.4-5.0); Sodium 130 mmol/L (137-145)
== END 2022-10-15 09:23 | disposition home or self-care (01) ==
LOC: ANHLAB 09:24
PROVIDERS: PCP Family Medicine; Visit Provider Nurse Practitioner Adult Health
DX: R06.09 Other forms of dyspnea (principal); R53.83 Other fatigue; E87.1 Hypo-osmolality and hyponatremia
CPT/HCPCS: 36415; 80048; 84443; 85025

== ENCOUNTER 2022-10-19 13:14 | Outpatient (CLI) | payer MEDICARE, SELFPAY ==
[2022-10-19 15:22] LABS: Appearance Urine Clear (Clear); Bacteria Urine None Seen /hpf; Bilirubin Urine Negative (Negative); Blood Urine Negative (Negative); Color Urine Yellow (Yellow); Glucose Urine UA Negative (Negative); Ketones Urine Negative (Negative); Leukocyte Esterase Ur Negative LEU/UL (Negative); Need Manual Microscopic Reviewed; Nitrate Urine Negative (Negative); Non Pathogenic Casts 0-2; Protein Urine Trace mg/dL (Negative); RBC Urine 0-2 /hpf (0-2); Specific Grav Ur 1.017 (1.001-1.035); Squamous Epithelial Cell Urine None seen /hpf (Few); Urobilinogen Urine 0.2 mg/dL (<2.0); WBC Urine 0-5 /hpf
[2022-10-19 15:35] LABS: Add Urine Microscopic? YES
== END 2022-10-19 13:15 | disposition home or self-care (01) ==
LOC: ANHLAB 13:15
PROVIDERS: PCP Family Medicine; Visit Provider Internal Medicine Hematology & Oncology
DX: N18.30 Chronic kidney disease, stage 3 unspecified (principal)
CPT/HCPCS: 81001

== ENCOUNTER 2022-11-22 11:43 | Outpatient (CLI) | payer MEDICARE, SELFPAY ==
[2022-11-22 13:40] LABS: Anion Gap 7 mmol/L (8-16); Blood Urea Nitrogen 25 mg/dL (9-20); Calcium 8.6 mg/dL (8.4-10.2); Carbon Dioxide 29 mmol/L (22-30); Chloride 94 mmol/L (98-107); Estimated Glomerular Filt Rate 57; Glucose 107 mg/dL (65-110); Potassium 4.2 mmol/L (3.4-5.0); Sodium 130 mmol/L (137-145)
== END 2022-11-22 11:44 | disposition home or self-care (01) ==
LOC: ANHLAB 11:45
PROVIDERS: PCP Family Medicine; Visit Provider Internal Medicine Hematology & Oncology
DX: N18.30 Chronic kidney disease, stage 3 unspecified (principal)
CPT/HCPCS: 36415; 80048

== ENCOUNTER 2022-12-09 10:55 | Outpatient (CLI) | payer MEDICARE, SELFPAY ==
--- NOTE | ~2022-12-09 | US_ITS ---
EXAMINATION: US venous doppler LE RT DATE: 12/09/2022 11:30 INDICATION: Right calf pain. TECHNIQUE: Grayscale ultrasound images without and with compression and Doppler ultrasound images of the right lower extremity veins were obtained. COMPARISON: Ultrasound 02/27/2019 FINDINGS: The visualized portions of right common femoral vein, profunda (deep) femoral vein, femoral vein, pop liteal vein, peroneal veins, posterior tibial veins, and greater saphenous vein outflow are patent. IMPRESSION: 1. No deep venous thrombosis. Reviewed, dictated and finalized at location A.
== END 2022-12-09 10:56 | disposition home or self-care (01) ==
PROVIDERS: PCP Family Medicine; Visit Provider Internal Medicine Cardiovascular Disease
DX: M79.661 Pain in right lower leg (principal)
CPT/HCPCS: 93971

== ENCOUNTER 2022-12-13 12:55 | Outpatient (CLI) | payer MEDICARE, SELFPAY ==
[2022-12-13 13:22] LABS: Hematocrit 37.1 % (42.0-52.0); Hemoglobin 12.2 g/dL (14.0-18.0); Mean Corpuscular HGB Conc 32.9 g/dl (32-36); Mean Corpuscular Hemoglobin 30.5 pg (26-34); Mean Corpuscular Volume 92.8 fl (80-100); Mean Platelet Volume 8.5 fl (7.4-10.4); Platelet Count Result 336 k/mm3 (150-375); Red Cell Distribution Width 13.5 % (11.5-14.5); White Blood Count 5.3 K/mm3 (4.5-10.0)
[2022-12-13 16:39] LABS: Anion Gap 5 mmol/L (8-16); Blood Urea Nitrogen 24 mg/dL (9-20); Calcium 9.1 mg/dL (8.4-10.2); Carbon Dioxide 30 mmol/L (22-30); Chloride 97 mmol/L (98-107); Estimated Glomerular Filt Rate 48; Glucose 100 mg/dL (65-110); Potassium 4.6 mmol/L (3.4-5.0); Sodium 132 mmol/L (137-145)
[2022-12-13 16:49] LABS: Parathyroid Intact 32.6 pg/mL (7.5-53.5)
[2022-12-13 17:18] LABS: Creatinine Urine 86.6 mg/dL; Total Protein Urine Random 8 mg/dL; Ur Ttl Prot Creatinine Ratio 0.09 mg/mg (0-0.20)
== END 2022-12-13 12:56 | disposition home or self-care (01) ==
LOC: ANHLAB 12:56
PROVIDERS: Internal Medicine Nephrology; PCP Family Medicine; Visit Provider Internal Medicine Hematology & Oncology
DX: N18.31 Chronic kidney disease, stage 3a (principal)
CPT/HCPCS: 36415; 80069; 82570; 83970; 84156; 85027

== ENCOUNTER 2022-12-24 15:15 | Outpatient (CLI) | payer MEDICARE, SELFPAY ==
--- NOTE | ~2022-12-24 | XR_ITS ---
EXAM: XR knee RT 3V DATE: 12/24/2022 15:39 HISTORY: M25.461 - Effusion, right knee. No injury . COMPARISON: 10/07/2022, images only. FINDINGS: Decreased mineralization. No fracture or dislocation. No lytic or blastic lesion. Moderate -severe tricompartmental osteoarthritis. Fragmented tibial tuberosity, possibly sequela of old [place] -Schlatter disease and patellar tendinosis. No erosion or periosteal change. Soft tissues within norm al limits. Small volume joint effusion. IMPRESSION: No acute osseous finding in the right knee. Reviewed, dictated and finalized at location K.
== END 2022-12-24 15:16 | disposition home or self-care (01) ==
PROVIDERS: PCP Family Medicine; Visit Provider Physician Assistant Medical
DX: M25.461 Effusion, right knee (principal)
CPT/HCPCS: 73562

== ENCOUNTER 2023-04-14 14:05 | Emergency (ER) | payer MEDICARE, SELFPAY ==
[2023-04-14 14:18] VITALS: BP 141/82; PULSE 75; RESP 18; O2SAT 96
--- NOTE | 2023-04-14 14:51 | ED.SKABFB ---
HPI - Skin/Abscess/Foreign Bdy General Chief complaint: Skin/Abscess/Foreign Body Stated complaint: bump on back Time Seen by Provider: 04/14/23 14:23 Source: patient and old records reviewed Mode of arrival: ambulatory Limitations: no limitations History of Present Illness HPI narrative: Patient presents today complaining a bump to his back that has been present for the past 7- 8 days. He was initially seen by his PCP at onset of symptoms and was placed on a course of Keflex. At that time he chose not to have his bump lanced and drained. Denies history of previous abscesses, boils, or staph infections. Related Data Home Medications Medication Instructions Recorded Confirmed aspirin 81 mg tablet,delayed 162 mg PO DAILY 05/07/20 04/14/23 release (Aspir-Low) acetaminophen 325 mg capsule 325 mg PO Q6H PRN Pain 08/18/21 04/14/23 (Tylenol) cetirizine 10 mg capsule (Zyrtec) 10 mg PO DAILY PRN Congestion 08/18/21 04/14/23 sohhfrulzzzw-wlq-mutzs acid-vit 1 tablet PO DAILY 08/18/21 04/14/23 K-lycop 400 mcg-20 mcg-370 mcg tablet (One-A-Day Men's 50 Plus (with vitamin K)) Allergies Allergy/AdvReac Type Severity Reaction Status Date / Time No Known Allergies Allergy Unknown Verified 04/08/23 22:04 Review of Systems Review of Systems: CONSTITUTIONAL: Denies body aches, fever, chills, or sweats. EYES: Denies visual changes, redness, or discharge. ENT: Denies rhinorrhea, congestion, sore throat, or otalgia. CARDIOVASCULAR: Denies chest pain, palpitations, or edema. RESPIRATORY: Denies cough or dyspnea. GASTROINTESTINAL: Denies abdominal pain, nausea, vomiting, or diarrhea. GENITOURINARY: Denies dysuria or hematuria. SKIN: + bump to left back MUSCULOSKELETAL: Denies back pain, joint pain, or myalgia. NEUROLOGIC: Denies headache, numbness, tingling, or weakness. PSYCH: Denies depression or anxiety. 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 Hip pain, right Hypertension Hyponatremia Insomnia Iron deficiency anemia Knee pain, right Low back pain Lumbar spine pain Macular degeneration Memory loss Obsessive compulsive disorder Plasma cell disorder Rectal bleeding Right knee DJD Right knee pain STD exposure Trochanteric bursitis, left hip Trochanteric bursitis, right hip Wears glasses Surgical History Surgical History H/O hernia repair History of shoulder surgery Hx of cataract extraction Family History Family History Mother Diabetes mellitus Family history of glaucoma Hypertension Family history of cardiovascular disease Cerebrovascular accident Father Hypertension Malignant neoplasm of prostate Sibling Family history of cardiovascular disease Other Arthritis Social History Social History Social History: the patient is going through a divorce. He stated that he had 4 children. He does not have a durable power state's attorney for healthcare. 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 The patient stated that he drinks about 4 glasses a wine a day. He stated that he has not gone through any withdrawals. The patient is an ex-smoker. code status full code Smoking packs per day: 2 Smoking cigarettes per day: 40.0 Years smoked: 20 Smoking pack-years: 40.00 Smoking status: Former smoker Second hand tobacco smoke exposure: Yes Smoking end date: 07/04/72 Alcohol intake: current Drinks per week: 28 Alcohol use details: WINE Substance use:
[2023-04-14 14:59] VITALS: TEMP 36.4
== END 2023-04-14 14:59 | disposition home or self-care (01) ==
PROVIDERS: Emergency Provider Nurse Practitioner; PCP Family Medicine
DX: L02.212 Cutaneous abscess of back [any part, except buttock and flank] (principal); M19.90 Unspecified osteoarthritis, unspecified site; I13.10 Hypertensive heart and chronic kidney disease without heart failure, with stage 1 through stage 4 chronic kidney disease, or unspecified chronic kidney disease; N18.31 Chronic kidney disease, stage 3a; M19.011 Primary osteoarthritis, right shoulder; R01.1 Cardiac murmur, unspecified; D50.9 Iron deficiency anemia, unspecified; H35.30 Unspecified macular degeneration; M17.11 Unilateral primary osteoarthritis, right knee; Z79.82 Long term (current) use of aspirin; Z87.891 Personal history of nicotine dependence
CPT/HCPCS: 10060; 99213; G0463

== ENCOUNTER 2023-06-10 11:57 | Outpatient (CLI) | payer MEDICARE, SELFPAY ==
[2023-06-10 12:16] LABS: Hematocrit 38.2 % (42.0-52.0); Hemoglobin 12.5 g/dL (14.0-18.0); Mean Corpuscular HGB Conc 32.7 g/dl (32-36); Mean Corpuscular Hemoglobin 30.9 pg (26-34); Mean Corpuscular Volume 94.6 fl (80-100); Mean Platelet Volume 8.4 fl (7.4-10.4); Platelet Count Result 279 k/mm3 (150-375); Red Blood Count 4.04 M/mm3 (4.6-6.20); Red Cell Distribution Width 12.8 % (11.5-14.5); White Blood Count 6.3 K/mm3 (4.5-10.0)
[2023-06-10 15:14] LABS: Alanine Aminotransferase 17 U/L (6-50); Albumin Level 4.2 g/dL (3.5-5.1); Albumin Level 4.4 g/dL (3.5-5.1); Alkaline Phosphatase 53 U/L (38-126); Anion Gap 8 mmol/L (8-16); Aspartate Amino Transferase 24 U/L (17-59); Bilirubin,Total 0.6 mg/dL (0.2-1.3); Blood Urea Nitrogen 30 mg/dL (9-20); Carbon Dioxide 28 mmol/L (22-30); Chloride 97 mmol/L (98-107); Estimated Glomerular Filt Rate 44; Glucose 96 mg/dL (65-110); Phosphorus 3.5 mg/dL (2.5-4.5); Potassium 4.5 mmol/L (3.4-5.0); Sodium 133 mmol/L (137-145)
[2023-06-10 15:18] LABS: Creatinine Urine 54.7 mg/dL; Total Protein Urine Random 11 mg/dL
[2023-06-10 15:19] LABS: Hemoglobin A1C 5.4 % (<5.7)
[2023-06-10 15:25] LABS: Parathyroid Intact 61.9 pg/mL (7.5-53.5)
== END 2023-06-10 11:58 | disposition home or self-care (01) ==
LOC: ANHLAB 11:59
PROVIDERS: PCP Family Medicine; Referring Provider Internal Medicine Nephrology; Visit Provider Internal Medicine Hematology & Oncology
DX: E11.9 Type 2 diabetes mellitus without complications (principal); F10.11 Alcohol abuse, in remission; Z51.81 Encounter for therapeutic drug level monitoring; G62.9 Polyneuropathy, unspecified; E03.9 Hypothyroidism, unspecified; N18.32 Chronic kidney disease, stage 3b
CPT/HCPCS: 36415; 80069; 80076; 82570; 82607; 83036; 83970; 84156; 84443; 85027

== ENCOUNTER 2023-06-23 12:58 | Outpatient (CLI) | payer MEDICARE, SELFPAY ==
--- NOTE | ~2023-06-23 | CT_ITS ---
CT of the Abdomen and Pelvis: Indication: Abdominal pain Technique: 2.5 mm axial scans were obtained through the abdomen and pelvis following intravenous adm inistration of 100 cc of Omnipaque 350. Dose reduction technique was used on this scan by utilizing a utomated exposure control and iterative reconstruction technique. The dose-length product (DLP) was 5 15.91 mGy-cm. Findings: Scans through the lung bases are unremarkable. The liver, spleen, pancreas, gallbladder, adrenals and kidneys are within normal limits. There are at herosclerotic calcifications of the aorta. No lymphadenopathy. No bowel obstruction or bowel wall thickening. There is no evidence to suggest acute appendicitis. Images through the pelvis were performed. Questionable urinary bladder wall thickening. Prostate glan d is enlarged. No ascites. Impression: Questionable cystitis. Correlate clinically and with urinalysis. Enlarged prostate gland. Reviewed, dictated and finalized at [facility]. LOPMENT TECHNICIAN Impression: Questionable cystitis. Correlate clinically and with urinalysis. Enlarged prostate gland.
== END 2023-06-23 12:59 | disposition home or self-care (01) ==
PROVIDERS: PCP Family Medicine; Visit Provider Nurse Practitioner
DX: R19.4 Change in bowel habit (principal); N40.0 Benign prostatic hyperplasia without lower urinary tract symptoms
CPT/HCPCS: 74177; Q9967

== ENCOUNTER 2023-06-30 14:44 | Emergency (ER) | payer MEDICARE, SELFPAY ==
--- NOTE | ~2023-06-30 | CT_ITS ---
EXAMINATION: CT abdomen pelvis w con DATE: 06/30/2023 23:30 INDICATION: abdominal pain TECHNIQUE: Computed tomography (CT) of the abdomen and pelvis was performed with 100 mL Omnipaque-350 intravenous contrast. Automated exposure control and iterative reconstruction technique were employe d. The dose-length product was 535.89 mGy-cm. COMPARISON: 06/23/2023. FINDINGS: Lower thorax: Minimal dependent scar/atelectasis. Liver: Normal. Biliary/Gallbladder: Gallbladder is normal. No bile duct dilation. Pancreas: No mass or duct dilation. Spleen: Normal. Adrenals:No mass. Kidneys: Bilateral simple cysts. Multiple bilateral subcentimeter hypodensities, too small to charact erize but most likely represent cysts. Bilateral cortical thinning. No hydronephrosis. No obstructing calcification. GI tract: Mild distal esophageal and gastric wall edema. No small or large bowel dilation. Normal álvaro endix. Diverticulosis without diverticulitis. Mesentery/Peritoneum: No ascites, mass, or free air. Retroperitoneum: No mass. Atherosclerotic abdominal aortic and/or arterial calcifications. Pelvis: Distended urinary bladder. Bladder wall diverticuli. Prostatomegaly. Soft Tissues: Soft tissues and body wall unremarkable. Bones: No acute osseous finding. IMPRESSION: No acute abdominopelvic process detected. Reviewed, dictated and finalized at location K. CLABLE MATERIALS DISTRIBUTOR
[2023-06-30 14:46] VITALS: BP 166/80; PULSE 97; RESP 20; TEMP 36.3; O2SAT 95
--- NOTE | 2023-06-30 20:38 | PC.NURSE ---
Patient to the triage desk stating his abdomen pain has gotten a little better since arrival to the ED. Patient states he pushed on it when coughing to help with the pain.
[2023-06-30 20:39] VITALS: BP 136/84; PULSE 100; RESP 18; TEMP 36.4; O2SAT 97
[2023-06-30 21:38] VITALS: BP 151/89; PULSE 77; PULSE 79; RESP 15; TEMP 36.6; O2SAT 98
[2023-06-30 22:51] LABS: Basophils Absolute Auto 0.1 K/mm3 (0.0-0.1); Basophils Percent Auto 0.9 % (0.2-1.2); Eosinophils Absolute Auto 0.1 K/mm3 (0-0.3); Eosinophils Percent Auto 2.1 % (0-4.4); Hematocrit 35.3 % (42.0-52.0); Hemoglobin 11.5 g/dL (14.0-18.0); Immature Granulocyte Absolute 0.12 K/mm3 (0.00-0.031); Immature Granulocyte Percent A 2.1 % (0-0.5); Lymphocytes Absolute Auto 1.41 K/mm3 (0.9-3.2); Lymphocytes Percent Auto 25.2 % (18.3-44.2); Mean Corpuscular HGB Conc 32.6 g/dl (32-36); Mean Corpuscular Hemoglobin 30.3 pg (26-34); Mean Corpuscular Volume 92.9 fl (80-100); Mean Platelet Volume 9.6 fl (7.4-10.4); Monocytes Absolute Auto 0.9 K/mm3 (0.1-0.6); Monocytes Percent Auto 15.7 % (2.6-8.5); Platelet Count Result 286 k/mm3 (150-375); Red Cell Distribution Width 12.4 % (11.5-14.5); White Blood Count 5.6 K/mm3 (4.5-10.0)
[2023-06-30 22:52] LABS: Appearance Urine Clear (Clear); Bilirubin Urine Negative (Negative); Blood Urine Negative (Negative); Color Urine Yellow (Yellow); Glucose Urine UA Negative (Negative); Ketones Urine Trace mg/dL (Negative); Leukocyte Esterase Ur Negative LEU/UL (Negative); Nitrate Urine Negative (Negative); Protein Urine Negative (Negative); Specific Grav Ur 1.011 (1.001-1.035); Urobilinogen Urine 0.2 mg/dL (<2.0); pH Urine 6.5 (5.0-9.0)
[2023-06-30 23:04] LABS: Alanine Aminotransferase 16 U/L (6-50); Albumin Level 4.1 g/dL (3.5-5.1); Alkaline Phosphatase 60 U/L (38-126); Anion Gap 9 mmol/L (8-16); Aspartate Amino Transferase 31 U/L (17-59); Bilirubin,Total 0.5 mg/dL (0.2-1.3); Blood Urea Nitrogen 23 mg/dL (9-20); Carbon Dioxide 25 mmol/L (22-30); Chloride 94 mmol/L (98-107); Estimated CRCL calculation 37 ml/min; Estimated Glomerular Filt Rate 57; Glucose 97 mg/dL (65-110); Lactic Acid Reflex 0.8 mmol/L (0.7-2.0); Lipase 80 U/L (23-300); Potassium 4.6 mmol/L (3.4-5.0); Sodium 128 mmol/L (137-145)
[2023-06-30 23:22] LABS: Add Urine Microscopic? NO
[2023-06-30 23:32] LABS: Influenza A QL RT-PCR Negative (Negative); Influenza B QL RT-PCR Negative (Negative); RSV RNA, RT-PCR Negative (Negative); SARS-CoV-2 RNA PCR Positive (Negative)
[2023-06-30 23:53] VITALS: BP 146/80; PULSE 84; RESP 15; O2SAT 97
--- NOTE | 2023-07-01 00:07 | ED.GENADULT ---
HPI - General Adult General Chief complaint: Unspecified Stated complaint: rib pain/covid positive Time Seen by Provider: 06/30/23 21:39 History of Present Illness HPI narrative: Patient 88-year-old gentleman presents emergency department chief complaint of abdominal discomfort. The patient reports he was recently diagnosed with COVID-19 reports he has been coughing coughing forcefully patient states that he felt a ripping sensation in his right upper quadrant and noticed there was a bulge. Patient states that the area has been increasing in size at times reports that it is reducible but reports that it is uncomfortable. Related Data Home Medications Medication Instructions Recorded Confirmed aspirin 81 mg tablet,delayed 162 mg PO DAILY 05/07/20 06/15/23 release (Aspir-Low) acetaminophen 325 mg capsule 325 mg PO Q6H PRN Pain 08/18/21 06/15/23 (Tylenol) cetirizine 10 mg capsule (Zyrtec) 10 mg PO DAILY PRN Congestion 08/18/21 06/15/23 htnpriglmlzi-bsm-umlii acid-vit 1 tablet PO DAILY 08/18/21 06/15/23 K-lycop 400 mcg-20 mcg-370 mcg tablet (One-A-Day Men's 50 Plus (with vitamin K)) Allergies Allergy/AdvReac Type Severity Reaction Status Date / Time No Known Allergies Allergy Unknown Verified 06/15/23 11:04 Review of Systems Review of Systems: A 10 system review of systems was completed on the patient and is negative except for what is stated in the HPI. Nursing and ancillary documentation was reviewed. 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 Hip pain, right Hx of adenomatous colonic polyps Hypertension Hyponatremia Insomnia Iron deficiency anemia Knee pain, right Low back pain Lumbar spine pain Macular degeneration Memory loss Obsessive compulsive disorder Plasma cell disorder Rectal bleeding Right knee DJD Right knee pain RUQ abdominal tenderness STD exposure Trochanteric bursitis, left hip Trochanteric bursitis, right hip Wears glasses Surgical History Surgical History H/O hernia repair History of shoulder surgery Hx of cataract extraction Family History Family History Mother Diabetes mellitus Family history of glaucoma Hypertension Family history of cardiovascular disease Cerebrovascular accident Father Hypertension Malignant neoplasm of prostate Sibling Family history of cardiovascular disease Other Arthritis Social History Social History Social History: the patient is going through a divorce. He stated that he had 4 children. He does not have a durable power real estate associate attorney for healthcare. 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 The patient stated that he drinks about 4 glasses a wine a day. He stated that he has not gone through any withdrawals. The patient is an ex-smoker. code status full code Smoking packs per day: 2 Smoking cigarettes per day: 40.0 Years smoked: 20 Smoking pack-years: 40.00 Smoking status: Former smoker Second hand tobacco smoke exposure: Yes Smoking end date: 07/04/72 Alcohol intake: current Drinks per week: 28 Alcohol use details: WINE Substance use: never Substance use type: does not use Lack of Transportation: No Lack of Food: Never True Current Housing: I Have Housing Concerned About Future Housing: No Difficulty Paying Gas/Electric Bills: No Difficulty Pay
== END 2023-07-01 00:35 | disposition home or self-care (01) ==
PROVIDERS: Emergency Provider Emergency Medicine; PCP Family Medicine
DX: S39.011A Strain of muscle, fascia and tendon of abdomen, initial encounter (principal); U07.1 COVID-19; I12.9 Hypertensive chronic kidney disease with stage 1 through stage 4 chronic kidney disease, or unspecified chronic kidney disease; N18.31 Chronic kidney disease, stage 3a; D50.9 Iron deficiency anemia, unspecified; M19.011 Primary osteoarthritis, right shoulder; M17.11 Unilateral primary osteoarthritis, right knee; K21.9 Gastro-esophageal reflux disease without esophagitis; Z86.010 Personal history of colon polyps; Z87.891 Personal history of nicotine dependence; Z98.49 Cataract extraction status, unspecified eye; Z79.82 Long term (current) use of aspirin; X50.9XXA Other and unspecified overexertion or strenuous movements or postures, initial encounter
CPT/HCPCS: 36415; 74177; 80053; 81003; 83605; 83690; 85025; 87637; 99284; Q9967

== ENCOUNTER 2023-08-16 12:14 | Outpatient (CLI) | payer MEDICARE, SELFPAY ==
[2023-08-16 12:32] LABS: Basophils Absolute Auto 0.1 K/mm3 (0.0-0.1); Basophils Percent Auto 1.2 % (0.2-1.2); Eosinophils Absolute Auto 0.2 K/mm3 (0-0.3); Eosinophils Percent Auto 2.6 % (0-4.4); Hematocrit 38.5 % (42.0-52.0); Hemoglobin 12.4 g/dL (14.0-18.0); Immature Granulocyte Absolute 0.04 K/mm3 (0.00-0.031); Immature Granulocyte Percent A 0.7 % (0-0.5); Lymphocytes Absolute Auto 1.34 K/mm3 (0.9-3.2); Lymphocytes Percent Auto 22.9 % (18.3-44.2); Mean Corpuscular HGB Conc 32.2 g/dl (32-36); Mean Corpuscular Hemoglobin 30.5 pg (26-34); Mean Corpuscular Volume 94.8 fl (80-100); Mean Platelet Volume 8.6 fl (7.4-10.4); Monocytes Absolute Auto 0.8 K/mm3 (0.1-0.6); Monocytes Percent Auto 13.9 % (2.6-8.5); Neutrophils Absolute Auto 3.4 K/mm3 (1.3-6.7); Neutrophils Percent Auto 58.7 % (45.5-73.1); Platelet Count Result 294 k/mm3 (150-375); Red Blood Count 4.06 M/mm3 (4.6-6.20); Red Cell Distribution Width 12.9 % (11.5-14.5); White Blood Count 5.8 K/mm3 (4.5-10.0)
[2023-08-16 16:20] LABS: Iron 101 ug/dL (49-181)
[2023-08-16 16:29] LABS: Alanine Aminotransferase 16 U/L (6-50); Alkaline Phosphatase 52 U/L (38-126); Anion Gap 6 mmol/L (8-16); Aspartate Amino Transferase 25 U/L (17-59); Bilirubin,Total 0.7 mg/dL (0.2-1.3); Blood Urea Nitrogen 20 mg/dL (9-20); Calcium 9.7 mg/dL (8.4-10.2); Carbon Dioxide 29 mmol/L (22-30); Chloride 100 mmol/L (98-107); Estimated Glomerular Filt Rate 52; Glucose 103 mg/dL (65-110); Percent Iron Saturation 34 % (20-50); Potassium 4.8 mmol/L (3.4-5.0); Sodium 135 mmol/L (137-145)
== END 2023-08-16 12:15 | disposition home or self-care (01) ==
LOC: ANHLAB 12:16
PROVIDERS: PCP Family Medicine; Visit Provider Internal Medicine Hematology & Oncology
DX: E87.1 Hypo-osmolality and hyponatremia (principal); D64.9 Anemia, unspecified
CPT/HCPCS: 36415; 80053; 82728; 83540; 83550; 85025

== ENCOUNTER 2023-12-06 11:53 | Outpatient (CLI) | payer MEDICARE, SELFPAY ==
[2023-12-06 12:16] LABS: Hematocrit 36.3 % (42.0-52.0); Hemoglobin 11.7 g/dL (14.0-18.0); Mean Corpuscular HGB Conc 32.2 g/dl (32-36); Mean Corpuscular Hemoglobin 30.5 pg (26-34); Mean Corpuscular Volume 94.5 fl (80-100); Mean Platelet Volume 8.8 fl (7.4-10.4); Platelet Count Result 330 k/mm3 (150-375); Red Blood Count 3.84 M/mm3 (4.6-6.20); Red Cell Distribution Width 13.2 % (11.5-14.5); White Blood Count 9.5 K/mm3 (4.5-10.0)
[2023-12-06 12:48] LABS: Creatinine Urine 55.7 mg/dL; Total Protein Urine Random 10 mg/dL; Ur Ttl Prot Creatinine Ratio 0.18 mg/mg (0-0.20)
[2023-12-06 16:46] LABS: Albumin Level 4.5 g/dL (3.5-5.1); Anion Gap 7 mmol/L (4-12); Blood Urea Nitrogen 32 mg/dL (9-20); Calcium 9.6 mg/dL (8.4-10.2); Carbon Dioxide 26 mmol/L (22-30); Chloride 102 mmol/L (98-107); Estimated Glomerular Filt Rate 48; Glucose 117 mg/dL (65-110); Potassium 4.4 mmol/L (3.4-5.0); Sodium 135 mmol/L (137-145)
[2023-12-06 16:55] LABS: Parathyroid Intact 29.5 pg/mL (7.5-53.5)
== END 2023-12-06 11:54 | disposition home or self-care (01) ==
LOC: ANHLAB 11:55
PROVIDERS: Internal Medicine Nephrology; PCP Family Medicine; Visit Provider Internal Medicine Hematology & Oncology
DX: E87.1 Hypo-osmolality and hyponatremia (principal); N18.32 Chronic kidney disease, stage 3b; F42.2 Mixed obsessional thoughts and acts
CPT/HCPCS: 36415; 80069; 82570; 83970; 84156; 85027

== ENCOUNTER 2023-12-22 10:28 | Outpatient (CLI) | payer MEDICARE, SELFPAY ==
--- NOTE | ~2023-12-22 | US_ITS ---
EXAMINATION: US soft tissue upper back DATE: 12/22/2023 11:13 INDICATION: Mass at the posterior right upper back TECHNIQUE: Multiple grayscale and Doppler ultrasound images of the area of concern at the right poste rior thorax overlying the scapula were obtained. COMPARISON: Chest CT dated 06/21/2011 FINDINGS: At the region of concern is a 3.4 x 3.1 x 1.9 cm heterogeneously hypoechoic mass with posterior acous tic enhancement in the subcutaneous fat. There is no internal vascular flow on color Doppler. Correla tion with CT of the chest dated 06/21/2011 demonstrates a 1.8 cm fluid attenuation cystic lesion in t he similar region. On the cine images there appears be a subtle hypoechoic tract extending towards th e skin surface. Overall constellation of findings would be most consistent with an epidermoid/sebaceo us cyst. IMPRESSION: 1. 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 Reviewed, dictated and finalized at location A.
== END 2023-12-22 10:29 | disposition home or self-care (01) ==
PROVIDERS: PCP Family Medicine; Visit Provider Nurse Practitioner Family
DX: R22.31 Localized swelling, mass and lump, right upper limb (principal)
CPT/HCPCS: 76604

== ENCOUNTER 2023-12-28 11:41 | Outpatient (CLI) | payer MEDICARE, SELFPAY ==
[2023-12-28 12:07] LABS: Basophils Percent Auto 0.7 % (0.2-1.2); Eosinophils Absolute Auto 0.1 K/mm3 (0-0.3); Hematocrit 37.4 % (42.0-52.0); Hemoglobin 12.3 g/dL (14.0-18.0); Immature Granulocyte Absolute 0.05 K/mm3 (0.00-0.031); Immature Granulocyte Percent A 0.9 % (0-0.5); Lymphocytes Absolute Auto 1.15 K/mm3 (0.9-3.2); Lymphocytes Percent Auto 20.7 % (18.3-44.2); Mean Corpuscular HGB Conc 32.9 g/dl (32-36); Mean Corpuscular Hemoglobin 30.9 pg (26-34); Mean Platelet Volume 8.8 fl (7.4-10.4); Monocytes Absolute Auto 0.8 K/mm3 (0.1-0.6); Monocytes Percent Auto 13.5 % (2.6-8.5); Neutrophils Absolute Auto 3.5 K/mm3 (1.3-6.7); Neutrophils Percent Auto 62.2 % (45.5-73.1); Platelet Count Result 277 k/mm3 (150-375); Red Blood Count 3.98 M/mm3 (4.6-6.20); Red Cell Distribution Width 12.7 % (11.5-14.5); White Blood Count 5.6 K/mm3 (4.5-10.0)
[2023-12-28 13:21] LABS: Alanine Aminotransferase 15 U/L (6-50); Albumin Level 4.6 g/dL (3.5-5.1); Alkaline Phosphatase 52 U/L (38-126); Anion Gap 6 mmol/L (4-12); Aspartate Amino Transferase 22 U/L (17-59); Bilirubin,Total 0.6 mg/dL (0.2-1.3); Blood Urea Nitrogen 31 mg/dL (9-20); Calcium 9.5 mg/dL (8.4-10.2); Carbon Dioxide 30 mmol/L (22-30); Chloride 99 mmol/L (98-107); Estimated Glomerular Filt Rate 41; Glucose 84 mg/dL (65-110); Potassium 4.8 mmol/L (3.4-5.0); Sodium 135 mmol/L (137-145)
[2023-12-28 13:50] LABS: Thyroid Stimulating Hormone 0.898 uIU/mL (0.465-4.680)
[2023-12-28 14:31] LABS: Folic Acid > 20.0 ng/mL (2.76->20)
[2023-12-28 15:18] LABS: Immunoglobulin A 203 mg/dL (70-400); Immunoglobulin G 1091 mg/dL (700-1600); Immunoglobulin M 99 mg/dL (40-230)
[2023-12-29 12:47] LABS: Protein, Total 6.7 g/dL (6.1-8.1)
[2023-12-29 14:18] LABS: Kappa\\Lambda Light Chains 1.98 (0.26-1.65); Lambda Light Chain 17.9 mg/L (5.7-26.3)
[2024-01-02 07:14] LABS: Alpha 1 Globulin 0.3; Alpha 2 Globulin 0.8; Beta 1 Globulin 0.4; Gamma Globulin 0.9
[2024-01-02 07:15] LABS: Abnormal Protein Band 1 0.7
== END 2023-12-28 11:42 | disposition home or self-care (01) ==
LOC: ANHLAB 11:43
PROVIDERS: Nurse Practitioner Family; Student in an Organized Health Care Education/Training Program; PCP Family Medicine; Visit Provider Internal Medicine Hematology & Oncology
DX: R41.3 Other amnesia (principal); R19.8 Other specified symptoms and signs involving the digestive system and abdomen; D72.9 Disorder of white blood cells, unspecified
CPT/HCPCS: 36415; 80053; 82607; 82746; 82784; 83883; 84155; 84165; 84443; 85025

== ENCOUNTER 2024-01-19 12:51 | Outpatient (CLI) | payer MEDICARE, SELFPAY ==
--- NOTE | ~2024-01-19 | MR_ITS ---
MRI of the brain Clinical History: Short-term memory loss Technique: Axial and sagittal T1-weighted images were acquired. These were followed by axial T2-weigh abhishek, diffusion weighted, gradient, and FLAIR images. COMPARISON: 04/06/2021 Findings: There is no acute infarct, intracranial hemorrhage, or mass lesion. Mild to moderate chroni c white matter ischemic change in the periventricular white matter similar to prior exam. Ventricles and subarachnoid spaces are mildly dilated. Orbits are unremarkable. Paranasal sinuses and mastoid air cells are clear. Major intracranial flow voids are intact. Sagittal midline structures are intact. IMPRESSION: No acute abnormality. Mild to moderate chronic microvascular ischemic change, and mild generalized atrophy, similar to prio r exam. Reviewed, dictated and finalized at location . IMPRESSION: No acute abnormality. Mild to moderate chronic microvascular ischemic change, and mild generalized at rop, similar to prior exam.
== END 2024-01-19 12:52 | disposition home or self-care (01) ==
LOC: ANHIMG 12:51
PROVIDERS: PCP Family Medicine; Visit Provider Student in an Organized Health Care Education/Training Program
DX: R41.3 Other amnesia (principal)
CPT/HCPCS: 70551

== ENCOUNTER 2024-05-02 07:57 | Outpatient (CLI) | payer MEDICARE, SELFPAY ==
--- NOTE | ~2024-05-02 | XR_ITS ---
EXAMINATION: XR UGIAC w barium swallow DATE: 05/02/2024 09:06 INDICATION: Gastroesophageal reflux disease with chronic cough TECHNIQUE: The patient drank thick barium, gas-producing crystals, and thin barium. A total of 1360 f luoroscopic images of the esophagus, stomach, and proximal small bowel were obtained. Fluoroscopy exp osure time was 2.2 minutes. COMPARISON: None. FINDINGS: The esophagus is normal without mass or stricture. Esophageal motility is within normal fox its for age.. There is no hiatal hernia. There was no gastroesophageal reflux with provocative maneuv ers. The stomach and proximal small bowel are normal. Instantly noted left pectoral implantable cardi ac monitor. IMPRESSION: 1. Normal upper GI and barium swallow study. Reviewed, dictated and finalized at location A.
== END 2024-05-02 07:58 | disposition home or self-care (01) ==
PROVIDERS: PCP Family Medicine; Visit Provider Nurse Practitioner
DX: R09.89 Other specified symptoms and signs involving the circulatory and respiratory systems (principal); R05.3 Chronic cough; K21.9 Gastro-esophageal reflux disease without esophagitis
CPT/HCPCS: 74246

== ENCOUNTER 2024-06-06 13:08 | Outpatient (CLI) | payer MEDICARE, SELFPAY ==
[2024-06-06 13:34] LABS: Hemoglobin 11.7 g/dL (14.0-18.0); Mean Corpuscular HGB Conc 32.5 g/dl (32-36); Mean Corpuscular Hemoglobin 30.2 pg (26-34); Mean Corpuscular Volume 92.8 fl (80-100); Platelet Count Result 313 k/mm3 (150-375); Red Blood Count 3.88 M/mm3 (4.6-6.20); Red Cell Distribution Width 13.1 % (11.5-14.5); White Blood Count 6.7 K/mm3 (4.5-10.0)
[2024-06-06 15:45] LABS: Creatinine Urine 52.2 mg/dL; Total Protein Urine Random 12 mg/dL; Ur Ttl Prot Creatinine Ratio 0.23 mg/mg (0-0.20)
[2024-06-06 20:28] LABS: Albumin Level 4.1 g/dL (3.5-5.1); Alkaline Phosphatase 47 U/L (38-126); Aspartate Amino Transferase 23 U/L (17-59); Bilirubin,Total 0.6 mg/dL (0.2-1.3)
[2024-06-06 21:07] LABS: Albumin Level 4.2 g/dL (3.5-5.1); Anion Gap 3 mmol/L (4-12); Blood Urea Nitrogen 26 mg/dL (9-20); Calcium 9.3 mg/dL (8.4-10.2); Carbon Dioxide 30 mmol/L (22-30); Chloride 98 mmol/L (98-107); Estimated Glomerular Filt Rate 48; Glucose 87 mg/dL (65-110); Phosphorus 3.7 mg/dL (2.5-4.5); Sodium 131 mmol/L (137-145)
[2024-06-06 21:18] LABS: Parathyroid Intact 18.6 pg/mL (14.5-75.2)
[2024-06-06 21:41] LABS: Alanine Aminotransferase 12 U/L (6-50)
[2024-06-06 23:24] LABS: Hemoglobin A1C 5.5 % (<5.7)
== END 2024-06-06 13:09 | disposition home or self-care (01) ==
LOC: ANHLAB 13:09
PROVIDERS: PCP Family Medicine; Visit Provider Internal Medicine Nephrology
DX: I12.9 Hypertensive chronic kidney disease with stage 1 through stage 4 chronic kidney disease, or unspecified chronic kidney disease (principal); N18.32 Chronic kidney disease, stage 3b; R53.83 Other fatigue; Z13.1 Encounter for screening for diabetes mellitus; Z79.899 Other long term (current) drug therapy; R20.2 Paresthesia of skin
CPT/HCPCS: 36415; 80069; 80076; 82570; 82607; 83036; 83970; 84156; 84443; 85027